=== PATIENT | female | born 1940 | race Caucasian/White ===

== ENCOUNTER 2020-04-05 13:36 | Emergency (ER) | payer MEDICARE, SELFPAY ==
--- NOTE | 2020-04-05 13:46 | ECG_ITS ---
Test Reason : CONFUSION Blood Pressure : / mmHG Vent. Rate : 075 BPM Atrial Rate : 075 BPM P-R Int : 126 ms QRS Dur : 078 ms QT Int : 392 ms P-R-T Axes : -12 -29 237 degrees QTc Int : 437 ms Normal sinus rhythm Possible Lateral infarct , age undetermined Abnormal ECG When compared with ECG of 25-MAR-2019 14:09, No significant changes seen Referred By: Toni Fleming Electronically Signed By:GREGORY RODRIGUEZ
--- NOTE | 2020-04-05 13:47 | ED.GENADULT ---
HPI - General Adult General Chief complaint: Altered Mental Status Stated complaint: ams Time Seen by Provider: 04/05/20 13:45 Source: EMS Mode of arrival: EMS Limitations: altered mental status History of Present Illness HPI narrative: Patient's history of dementia called EMS because she was sitting on the toilet seat for 1 hour with difficulty in getting up patient alert oriented 1-2 does not know why she is here with significant memory loss no history of fall no fever no chills no cough or shortness of breath Related Data Allergies Allergy/AdvReac Type Severity Reaction Status Date / Time No Known Allergies Allergy Unverified 11/30/19 16:54 [No Known Allergies*] Review of Systems Review of Systems: Yes Unobtainable due to mental status [facility] Social History Social History Alcohol intake: never Smoked in Last 30 Days: No Use of substances other than those prescribed or required for medical reasons: No Advance Directives: No Advance Directives Information Provided: No Physical Exam Vital Signs: Vital Signs: Last Vital Signs Temp 97.8 F 04/05/20 14:19 Pulse 68 04/05/20 14:19 Resp 17 04/05/20 14:19 BP 163/71 H 04/05/20 14:19 Pulse Ox 99 04/05/20 14:19 Body Mass Index 33.0 Const: General: no acute distress, well developed, alert and awake Nutritional Appearance: average body habitus Orientation/consciousness: oriented to person HENMT: Head: Yes normocephalic and Yes atraumatic Ears: hearing grossly normal bilaterally Face and sinus: Yes normal facial exam Eyes: General: appearance normal, both eyes and all related structures Neck: Neck: Yes normal visual inspection, Yes full ROM, Yes no meningeal signs, Yes supple and Yes no JVD Chest: Chest palpation & inspection: normal inspection of the chest and normal palpation of entire chest wall Resp: Effort & Inspection: normal respiratory effort Auscultation: clear to auscultation bilaterally, no crackles, no rales and no rhonchi Cardio: Jugular venous distension: no JVD Palpation: normal PMI Rate: regular rate Rhythm: regular rhythm Heart sounds: S1 normal heart sound present and S2 normal heart sound present GI: Inspection: Yes normal to inspection Palpation (GI): not soft and nontender Auscultation: normal bowel sounds : General: Yes no CVA tenderness Back/Spine/Pelvis: Back: no CVA tenderness Thoracic/Lumbar Spine: thoracic and lumbar spine normal to inspection Skin: General skin exam: no rashes or lesions noted Neuro: General: oriented to person, moves all extremities, Normal light touch and pain sensation, no meningeal signs, no focal motor deficits and CN's II-XI intact bilaterally Extrem: General: Yes normal to inspection, Yes full ROM, Yes no calf tenderness and No pedal edema Medical Decision Making MDM Narrative Medical decision making narrative: Patient with dementia with increased confusion and weakness will check the labs CBC is normal chemistry pending will check the urine for UTI. No signs of acute CVA. Patient signed to Dr. Marino for disposition and lab review Lab Data Lab results reviewed: Yes I reviewed the patient's lab results. Result diagrams: 04/05/20 14:51 04/05/20 14:51 Labs: Lab Results 04/05/20 04/05/20 Range/Units 14:51 14:51 WBC 6.3 (4.8-10.8) X10*3/uL RBC 4.09 L (4.20-5.50) X10*6/uL Hgb 12.6 (12.0-16.0) g/dl Hct 39.0 (37-47) % MCV 95.4 (80-98) fL MCH 30.8 (27.0-33.0) pg MCHC 32.3 (31.0-35.0) g/dl RDW 12.9 (11.0-16.0) % Plt Count 163 (160-400) X10*3/uL MPV 11.2 (9.4-12.3) fL Immature Gran % (Auto) 0.2 (0.0-0.4) % Neut % (Auto) 49.5 (45-73) % Lymph % (Auto) 37.9 (20-40) % [place] % (Auto) 10.0 (2-11) % Eos % (Auto) 1.9 (0-4) % Baso % (Auto) 0.5 (0-2) % Lymph # (Auto) 2.4 (1.2-4.9) X10*3/uL [place] # (Auto) 0.6 (0.1-1.2) X10*3/uL Eos # (Auto) 0.1 (0.0-0.4) X10*3/uL Baso # (Auto) 0.0 (0.0-0.2) X10*3/uL Abs Immat Gran (auto) 0.01 (0.00-0.03) X10*3/uL Absolute Neuts (auto) 3.1 (2.0-8.3) X10*3/uL Absolute Nucleated RBC 0.000 (0.0-0.012) X10*3/uL Nucleated RBC % (auto) 0.0 (0.0-0.2) /100WBC COVID-19 (ALISON) Negative (Negative) COVID-19 Clin Com See Note ECG Data Attestation: I personally reviewed and interpreted this ECG as follows: Interpretation: Normal sinus rhythm heart rate 75 beats per minute normal intervals normal axis no acute ST T wave changes impression no acute ischemia
[2020-04-05 14:07] VITALS: BP 132/78; BP 163/71; PULSE 66; PULSE 74; RESP 17; TEMP 36.6; O2SAT 97; O2SAT 98; BMI 33.0
[2020-04-05 14:19] VITALS: BP 163/71; PULSE 68; RESP 17; TEMP 36.6; O2SAT 99
[2020-04-05] MEDS: 0.9 % Sodium Chloride 1,000 ML 999 ML IVCONT (14:54)
[2020-04-05 15:12] LABS: MANUAL DIFF FLAG NO
[2020-04-05 15:18] LABS: Basophils Percent Auto 0.5 % (0-2); Eosinophils Absolute Auto 0.1 X10*3/uL (0.0-0.4); Eosinophils Percent Auto 1.9 % (0-4); Hemoglobin 12.6 g/dl (12.0-16.0); Imm Gran Abs Auto 0.01 X10*3/uL (0.00-0.03); Imm Gran Pct Auto 0.2 % (0.0-0.4); Lymphocytes Absolute Auto 2.4 X10*3/uL (1.2-4.9); Lymphocytes Percent Auto 37.9 % (20-40); Mean Corpuscular HGB Conc 32.3 g/dl (31.0-35.0); Mean Corpuscular Hemoglobin 30.8 pg (27.0-33.0); Mean Corpuscular Volume 95.4 fL (80-98); Mean Platelet Volume 11.2 fL (9.4-12.3); Monocytes Absolute Auto 0.6 X10*3/uL (0.1-1.2); Neutrophils Absolute Auto 3.1 X10*3/uL (2.0-8.3); Neutrophils Percent Auto 49.5 % (45-73); Platelet Count 163 X10*3/uL (160-400); Red Blood Count 4.09 X10*6/uL (4.20-5.50); Red Cell Distribution Width 12.9 % (11.0-16.0); White Blood Count 6.3 X10*3/uL (4.8-10.8)
[2020-04-05 15:23] LABS: COVID-19 Test Negative (Negative); IDNOW Serial# 9DD0AD1C
--- NOTE | 2020-04-05 16:32 | CT_ITS ---
EXAMINATION: CT HEAD WITHOUT CONTRAST CLINICAL INFORMATION: Altered mental status COMPARISON: None TECHNIQUE: Contiguous axial imaging was performed from the skull base to vertex without intravenous administration of contrast. This CT examination was performed using dose optimization techniques as appropriate, variously including the following: *Automated exposure control *Adjustment of mA and/or kV according to patient size (this includes techniques or standardized protocols for targeted exams where dose is matched to indication/reason for exam; i.e. extremities or head) *Use of iterative reconstruction technique DLP: 842 mGy-cm FINDINGS: There is no evidence of acute intracranial hemorrhage or territorial infarction. No abnormal mass effect or midline shift is seen. Fair to white matter differentiation is well preserved. No extra-axial fluid collections are identified. The ventricles are normal in size. There is atrophy here and scattered white matter ischemic change. The osseous structures and soft tissues are normal. The mastoid air cells and visualized portions of the paranasal sinuses are well aerated. CT/CT head/brain wo con IMPRESSION: No acute intracranial pathology.
[2020-04-05 16:58] LABS: Alanine Aminotransferase 17 U/L (0-31); Albumin Level 3.6 g/dL (3.5-5.0); Alkaline Phosphatase 57 U/L (39-117); Anion Gap 9 (12-20); Aspartate Amino Transferase 19 U/L (5-31); Bilirubin Direct 0.2 mg/dL (0.0-0.5); Bilirubin Total 0.5 mg/dL (0.0-1.0); Blood Urea Nitrogen 23 mg/dL (9-16); Calcium 8.3 mg/dL (8.4-10.2); Carbon Dioxide 27 mmol/L (22-29); Chloride 108 mmol/L (96-108); Creatinine Clr Calc Pharmacy 61.2; Estimated Glomerular Filt Rate > 60; Glucose Random 84 mg/dL (60-115); Sodium 140 mmol/L (135-145); Total Protein 6.2 g/dL (6.5-8.0)
[2020-04-05] MEDS: LORazepam 1 MG TABLET PO (19:58)
[2020-04-05 22:22] LABS: Appearance Urine CLEAR; Color Urine YELLOW; Glucose Urine UA NEG (NEG); Leukocyte Esterase Urine NEG (NEG); Nitrite Urine NEG (NEG); Specific Gravity - Urine 1.025 (1.005-1.025); Urine Blood TRACE (NEG); Urine Ketones NEG (NEG); Urine Protein NEG (NEG-TRACE)
[2020-04-05 22:28] LABS: Bacteria Urine TRACE /LPF; RBC Urine 0-2 /HPF (0); WBC Urine 0 /HPF (0-4)
[2020-04-06 01:13] VITALS: BP 156/85; PULSE 73; RESP 16; TEMP 37; O2SAT 99
[2020-04-06 02:51] VITALS: BP 177/78; PULSE 76; RESP 18; O2SAT 97
[2020-04-06 06:00] VITALS: BP 156/78; PULSE 81; RESP 18; TEMP 37.3; O2SAT 97
[2020-04-06 08:00] VITALS: RESP 18
[2020-04-06 10:00] VITALS: BP 155/77; PULSE 77; RESP 18; O2SAT 97
--- NOTE | 2020-04-06 11:13 | MHC.CM.ED ---
Received case management consult overnight. Patient came to ER due to AMS. Physical therapy eval is pending. Spoke with patient's , Tesfaye via telephone at [phone]. 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 Tesfaye has been attempting to get patient into [facility] unit in [place]. T/W spoke with Rose at [facility] via telephone. The patient would need to have an assessment completed by their nurse before she would be eligible to go to their facility. Before they complete the assessment, they need to know the patient is compliant with chloe care and medication administration. They are hoping patient can go to short term rehab and then transition to their facility in the first week of April. Tesfaye is aware and will wait until physical therapy evaluatates patient. Continue to monitor for d/c needs.
[2020-04-06 13:43] VITALS: BP 155/77; PULSE 77; O2SAT 97
--- NOTE | 2020-04-06 14:44 | MHC.CM.ED ---
Spoke with Arianne from physical therapy. Tesfaye is concerned about discharge plan. T/w attempted to reach him at home via telephone at [phone] and cell at [phone]. Requested return telephone call. Continue to monitor for d/c needs.
--- NOTE | 2020-04-06 14:57 | MHC.CM.PN ---
Physical therapy jordan. STR transitioning to LTC vs Home with services. Spoke with patient's Tesfaye. Tesfaye would prefer to take patient home and continue to attempt to get patient into [facility] unit. He will be at the ER at 4pm to bring the patient clothes and transport her home. Tesfaye is declining [facility]NA at this time. Ene EPSTEIN and Volodymyr GRIFFIN aware. Continue to monitor for d/c needs.
== END 2020-04-06 16:46 | disposition home or self-care (01) ==
PROVIDERS: Emergency Provider Internal Medicine; PCP Internal Medicine
DX: F03.90 Unspecified dementia, unspecified severity, without behavioral disturbance, psychotic disturbance, mood disturbance, and anxiety (principal); Z20.822 Contact with and (suspected) exposure to COVID-19
CPT/HCPCS: 36415; 70450; 80048; 80076; 81001; 85025; 87635; 93005; 96360; 97162; 99285

== ENCOUNTER 2020-04-06 19:54 | Emergency (ER) | payer MEDICARE, SELFPAY ==
[2020-04-06 19:59] VITALS: BP 149/78; PULSE 88; RESP 16; TEMP 36.7; O2SAT 95; BMI 28.8
--- NOTE | 2020-04-06 20:58 | ED.GENADULT ---
HPI - General Adult General Chief complaint: General Medical Stated complaint: DEMENTIA Time Seen by Provider: 04/06/20 20:58 Source: patient, EMS and old records reviewed Mode of arrival: EMS Limitations: altered mental status History of Present Illness HPI narrative: 79 yo female with dementia seen yesterday in ED with normal labs, negative COVID, CT scan negative - sent home for SNF placement from home after DC, family notes they cannot take care of her at this time Onset (ago): month(s) Severity: mild Relieving factors: none Exacerbating factors: none Associated symptoms: denies other symptoms Treatments prior to arrival: none Related Data Home Medications Medication Instructions Recorded Confirmed atenolol 25 mg PO DAILY 04/06/20 04/06/20 levothyroxine 100 mcg PO DAILY 04/06/20 04/06/20 Allergies Allergy/AdvReac Type Severity Reaction Status Date / Time No Known Allergies Allergy Verified 04/06/20 23:56 [No Known Allergies*] Review of Systems Review of Systems: ROS unable to be obtained due to dementia REPLACED BY [facility] Past Medical History Attestation statement: The following information was validated with the patient. Medical History Dementia Social History Social History Alcohol intake: never Smoking Status: Smoker, status unknown Use of substances other than those prescribed or required for medical reasons: No Advance Directives: No Advance Directives Information Provided: No Physical Exam Vital Signs: Vital Signs: Last Vital Signs Temp 98.0 F 04/06/20 19:59 Pulse 85 04/07/20 01:59 Resp 20 04/07/20 01:59 BP 157/82 H 04/07/20 01:59 Pulse Ox 96 04/07/20 01:59 Body Mass Index 28.8 Appearance: calm and cooperative at this time, sleeping, easily woken Eyes: Pupils equal, round and reactive to light. ENT: Pharynx normal. Neck: Normal inspection. Neck supple. CVS: Normal heart rate and rhythm. Pulses normal. Respiratory: No respiratory distress. Breath sounds normal. Abdomen: Soft and no grimace with palpation Skin: Skin warm and dry. Normal skin color. Normal skin turgor. Extremities: No lower extremity edema. No calf ttp Neuro: resting comfortably No motor deficit. No sensory deficit. Course Course Course Narrative: signed out to day provider pending CM input Medical Decision Making MDM Narrative Medical decision making narrative: 79 yo female coming from home with dementia - already worked up medically yesterday no new complaints other than family cannot care for her at home - will order CM consult and keep in ED until they determine appropriate placement Discharge Plan Discharge Clinical Impression: Dementia Qualifiers: Dementia type: unspecified type Dementia behavioral disturbance: without behavioral disturbance Qualified Code(s): F03.90 - Unspecified dementia without behavioral disturbance Prescriptions: No [facility] atenolol 25 mg Tablet 25 mg PO DAILY RF: 0 levothyroxine 100 mcg Capsule 100 mcg PO DAILY RF: 0
--- NOTE | 2020-04-06 21:17 | PC.NURSE ---
Patient was discharged from [facility] this afternoon. Per EMS they were called to patient's home and family stated that they could not take care of her anymore. Patient sent back for case management and jail placement.
[2020-04-07] VITALS (7 sets, daily range): BP systolic 132–157; BP diastolic 54–84; PULSE 63–85; RESP 16–20; TEMP 36.3–36.8; O2SAT 94–99
--- NOTE | 2020-04-07 | PC.NURSE ---
This appeals writer spoke with patient's who stated that he is unable to care for his at this point because she requires alot of assistance and it is only him. He would like her place in a residence and if by chance she rallies he is not opposed to having her back home. He was very upset that she urinated on the couch.
--- NOTE | 2020-04-07 06:31 | PC.NURSE ---
Patient slept the entire evening. Medication reconciliation completed. Patient is to be seen by case management this morning and also is to have PT evaluation for placement. Family is unable to care for patient at this time.
--- NOTE | 2020-04-07 07:36 | PC.NURSE ---
PT IS SLEEPING RESP EVEN AND UNLABORED.
[2020-04-07] MEDS: Levothyroxine Sodium 100 MCG TABLET PO (08:14)
[2020-04-07] MEDS: atenoloL 25 MG TABLET PO (08:14)
--- NOTE | 2020-04-07 10:01 | MHC.CM.ED ---
Patient was in ER yesterday. Patient's decided to take her home. However, he had to call EMS again because she was not able to ambulate and was inc of urine. Spoe with patient's , Tesfaye, via telephone at [phone]. Tesfaye is agreeable to referral being broadcasted. Referral broadcasted in [employer]. Continue to monitor for d/c needs.
--- NOTE | 2020-04-07 13:51 | MHC.CM.ED ---
Referrals brodcasted in [employer]. [facility], [facility] and [facility] can potentially offer a bed tomorrow. These options were discussed with patient's , Tesfaye. He is not interested in having patient go to [facility]. Tesfaye understands it is anticipated she will spend the night in the ER. Have not heard from [facility], [facility] or [facility]. Continue to monitor for d/c needs.
--- NOTE | 2020-04-07 15:37 | PC.NURSE ---
Patient moved into hospital bed for comfort. Pt incont of urine and stool prior to transfer- chloe care provided, linen changed, and pure wick applied. Pt is tolerating well. Pt ate 100% of lunch. Pending case management placement. Pt denies complaints or needs at this time.
[2020-04-07 20:22] LABS: COVID-19 Test Negative (Negative); IDNOW Serial# 9DD0AD1C
--- NOTE | 2020-04-07 21:10 | PC.NURSE ---
Pt ate 100% of dinner, denies complaints or needs at this time.
[2020-04-08] VITALS (8 sets, daily range): BP systolic 118–181; BP diastolic 52–81; PULSE 52–84; RESP 16–18; TEMP 36.4–36.6; O2SAT 94–97
[2020-04-08] MEDS: atenoloL 25 MG TABLET PO (09:46)
[2020-04-08] MEDS: Levothyroxine Sodium 100 MCG TABLET PO (09:47)
--- NOTE | 2020-04-08 09:50 | PC.NURSE ---
Pt changed for urine incontinence, pt aggressive with staff but complaint with much redirection needed. Accepted AM pills whole with water. Declines breakfast and back to sleep at this time.
--- NOTE | 2020-04-08 13:54 | PC.NURSE ---
Pt sleeping since this AM, awakes with verbal and at times tactile stimuli. Per prior RN pt did not sleep much last night. Declined lunch, will re attempt with dinner.
--- NOTE | 2020-04-08 17:23 | PC.NURSE ---
Pt cleaned for urine and stool incontinence, aggressive with care but able to redirect. Spoke again to Tesfaye and updated. Pt continues to sleep most of shift, per pt had same issue with sleeping throughout day and awake at night at home.
--- NOTE | 2020-04-08 18:18 | MHC.CM.ED ---
Spoke with , Tesfaye ([phone]). Reviewed plan of care and referrals placed. No bed yet. Waiting on second broadcast referrals. Tesfaye tells CM that he cannot care for his in this state. States she was much more independent a week ago. He feel she is not safe at home. Tesfaye tells CM that he had an appointment last wednesday, 04/05 to have pt evaluated at [facility] in [place] for a locked dementia bed. Tesfaye's expectation is that maybe STR will help his and if not, he expects she will need LTC, hopefully at [facility]. States he has funds until she can be eligible for medicaid. Will speak with Tesfaye again tomorrow when we hear back from referrals place. Tesfaye spoke with RN for update on pt condition and care today. Will follow for d/c needs
--- NOTE | 2020-04-08 19:13 | PC.NURSE ---
patient was fed by this pct ,patient ate 100% ,and drank 240 cc of milk
--- NOTE | 2020-04-08 21:18 | PC.NURSE ---
patient drank ensure without issue.
[2020-04-09] VITALS (7 sets, daily range): BP systolic 118–143; BP diastolic 63–75; PULSE 47–69; RESP 16–20; TEMP 36.9–38.1; O2SAT 93–96
--- NOTE | 2020-04-09 01:30 | PC.NURSE ---
Pt urine incontinent and stool incontinenent. full bed bath preformed. skin checked. barrier cream applied. linens changed. pt assessed by data support analyst with drinking water. monitoring at time.
--- NOTE | 2020-04-09 03:17 | XR_ITS ---
EXAMINATION: XR CHEST CLINICAL INFORMATION: Fever COMPARISON: 03/25/2019 TECHNIQUE: Frontal view of the chest was obtained. FINDINGS: Lung volumes are symmetric. No focal consolidation is seen. No evidence of pneumothorax, pleural effusion, or pulmonary edema. Cardiac silhouette appears borderline enlarged. Plate and screw fixation hardware noted along the right clavicle. XR/XR chest 1V IMPRESSION: No acute cardiopulmonary findings.
[2020-04-09 03:30] LABS: MANUAL DIFF FLAG NO
[2020-04-09 03:32] LABS: Basophils Percent Auto 0.2 % (0-2); Eosinophils Absolute Auto 0.2 X10*3/uL (0.0-0.4); Eosinophils Percent Auto 1.8 % (0-4); Hematocrit 42.2 % (37-47); Hemoglobin 13.8 g/dl (12.0-16.0); Imm Gran Abs Auto 0.03 X10*3/uL (0.00-0.03); Imm Gran Pct Auto 0.3 % (0.0-0.4); Lymphocytes Absolute Auto 2.2 X10*3/uL (1.2-4.9); Lymphocytes Percent Auto 20.2 % (20-40); Mean Corpuscular HGB Conc 32.7 g/dl (31.0-35.0); Mean Corpuscular Hemoglobin 30.5 pg (27.0-33.0); Mean Corpuscular Volume 93.2 fL (80-98); Monocytes Percent Auto 9.4 % (2-11); Neutrophils Absolute Auto 7.4 X10*3/uL (2.0-8.3); Neutrophils Percent Auto 68.1 % (45-73); Platelet Count 199 X10*3/uL (160-400); Red Blood Count 4.53 X10*6/uL (4.20-5.50); Red Cell Distribution Width 12.8 % (11.0-16.0); White Blood Count 10.9 X10*3/uL (4.8-10.8)
[2020-04-09 03:37] LABS: Glucose Urine UA NEG (NEG); Leukocyte Esterase Urine 2+ (NEG); Nitrite Urine POS (NEG); PH 5.5 (5.0-8.0); Specific Gravity - Urine >= 1.030 (1.005-1.025); UACC Culture Trigger YES; Urine Blood 3+ (NEG); Urine Ketones NEG (NEG); Urine Protein 3+ MG/DL (NEG-TRACE)
[2020-04-09 03:47] LABS: Appearance Urine TURBID; Bacteria Urine 2+ /LPF; Color Urine AMBER; RBC Urine 0-2 /HPF (0); Squamous Epithelial Cell Urine TRACE /LPF; WBC Clumps Urine NOTED; WBC Urine TNTC /HPF (0-4)
[2020-04-09 03:49] LABS: Lactic Acid 1.2 mmol/L (0.5-2.0)
--- NOTE | 2020-04-09 03:51 | PC.NURSE ---
This travel writer and ERT went in to patient to change bed linens cause she had soiled herself. Patient felt warm to touch and skin was hot to touch. informed and epstein catheter order. Patient had foul smelling urine and it was indicative of urinary tract infection. Urine sample sent after epstein catheter places. Urine was frothy pink. Result of urine came back nitrate positive and patient is being treated for urinary tract infection. Patient was lined and lab'd with blood cultures being drawn. IV fluid hung. Iv wrapped with guaze so that patient didn't pull the IV out. Patient rectal temperature at this time was 100.6. aware.
[2020-04-09 03:53] LABS: Alanine Aminotransferase 22 U/L (0-31); Albumin Level 3.7 g/dL (3.5-5.0); Alkaline Phosphatase 60 U/L (39-117); Anion Gap 15 (12-20); Aspartate Amino Transferase 29 U/L (5-31); Bilirubin Direct 0.3 mg/dL (0.0-0.5); Bilirubin Total 0.7 mg/dL (0.0-1.0); Blood Urea Nitrogen 25 mg/dL (9-16); Carbon Dioxide 26 mmol/L (22-29); Chloride 104 mmol/L (96-108); Creatinine Clr Calc Pharmacy 57.5; Estimated Glomerular Filt Rate > 60; Glucose Random 114 mg/dL (60-115); Lipase 21 U/L (8-78); Potassium 3.5 mmol/l (3.3-5.1); Sodium 141 mmol/L (135-145); Total Protein 6.5 g/dL (6.5-8.0)
[2020-04-09 03:56] LABS: COVID-19 Test Negative (Negative)
[2020-04-09] MEDS: 0.9 % Sodium Chloride 1,000 ML 999 ML IVCONT (03:56)
[2020-04-09] MEDS: cefTRIAXone sodium 1 GM in 0.9 % Sodium Chloride 50 ML IV (04:58)
--- NOTE | 2020-04-09 07:28 | PC.NURSE ---
pt awake and alert to place but otherwise confused abx completed, pt repositioned and given breakfast. epstein cath draining well. pt in no distress.
[2020-04-09] MEDS: Levothyroxine Sodium 100 MCG TABLET PO (08:12)
[2020-04-09] MEDS: atenoloL 25 MG TABLET PO (08:12)
--- NOTE | 2020-04-09 09:19 | PC.NURSE ---
pt continues resting comfortably in semifowlers position. pt tolerated approx 30% breakfast in total. awaiting case mgt .
--- NOTE | 2020-04-09 09:56 | MHC.CM.ED ---
Patient remains in ER. Still waiting to hear about bed offers. T/w spoke with Ute at [facility]. They have 2 levels of memory care units that patient may be appropriate for. Ute will reach out to Tesfaye. Continue to monitor for d/c needs.
--- NOTE | 2020-04-09 11:50 | MHC.CM.ED ---
's seat in [place] is able to offer a bed today. Spoke with patient's Tesfaye via telephone. Tesfaye agreeable to transfer and will bring clothes to the ER for the patient. [facility] booked for 230pm. [facility] with chart. Patient, Dr Montgomery and Krish RN aware. Continue to monitor for d/c needs.
--- NOTE | 2020-04-09 13:52 | MHC.CM.ED ---
Tesfaye arrived to ER with belongings to patient. 2 bags brought to patient's room by T/Alfredo
== END 2020-04-09 14:47 | disposition home or self-care (01) ==
PROVIDERS: Emergency Medicine; Emergency Provider Emergency Medicine; PCP Internal Medicine
DX: F03.90 Unspecified dementia, unspecified severity, without behavioral disturbance, psychotic disturbance, mood disturbance, and anxiety (principal); Z20.822 Contact with and (suspected) exposure to COVID-19; Z79.899 Other long term (current) drug therapy
CPT/HCPCS: 36415; 71045; 80048; 80076; 81001; 81003; 83605; 83690; 85025; 87040; 87086; 87088; 87186; 87635; 96361; 96365; 99285; J0696

== ENCOUNTER 2021-07-05 13:14 | Inpatient (IN) | payer MEDICARE, MEDICAID, SELFPAY ==
[2021-07-05] VITALS (9 sets, daily range): BP systolic 108–134; BP diastolic 42–76; PULSE 88–99; RESP 14–32; O2SAT 84–96; BMI 25.7
--- NOTE | ~2021-07-05 | CT_ITS ---
EXAMINATION: CT ABDOMEN AND PELVIS WITH CONTRAST CLINICAL INFORMATION: Abdominal pain. Abdominal distention. COMPARISON: None TECHNIQUE: Multidetector volumetric images were obtained from the superior aspect of the liver through the pubic symphysis following administration 85 mL of Omnipaque 350 intravenous contrast. Sagittal and coronal reformatted images were obtained on the technologist's workstation. Oral contrast: Yes This CT examination was performed using dose optimization techniques as appropriate, variously including the following: *Automated exposure control *Adjustment of mA and/or kV according to patient size (this includes techniques or standardized protocols for targeted exams where dose is matched to indication/reason for exam; i.e. extremities or head) *Use of iterative reconstruction technique DLP: 812 mGy-cm FINDINGS: LUNG BASES: There is bronchial wall thickening seen at the lung bases. There may be a small esophageal hernia. The distal thoracic esophagus is slightly distended and fluid-filled. LIVER, GALLBLADDER, AND BILIARY TREE: The liver is normal in size, shape, and attenuation. No focal hepatic lesion or biliary ductal dilatation is present. The gallbladder is unremarkable with no evidence of radiopaque gallstones, gallbladder wall thickening, or obvious pericholecystic inflammatory changes. PANCREAS: Unremarkable. SPLEEN: Unremarkable. ADRENAL GLANDS: Unremarkable. KIDNEYS AND URETERS: There is a 1 cm cyst in the left kidney. The kidneys are otherwise unremarkable. BLADDER: Not optimally distended. GASTROINTESTINAL TRACT: Colon is very dilated and filled with stool. There is beaked appearance of the distal sigmoid colon and swirling of the mesentery suggestive of sigmoid volvulus. There is focal wall thickening of the sigmoid colon, stranding of the fat and surrounding mesentery and secondary vascular compromise cannot be excluded. The rectum does not appear dilated. The small bowel is normal. The appendix is not seen. There may be a small esophageal hernia. The stomach is otherwise normal. No free air is seen. There is a small amount of ascites in the pelvis. ABDOMINAL WALL: No significant hernia is appreciated. LYMPH NODES: Normal. VASCULAR: There is evidence of atherosclerotic disease. No aneurysm is seen. PELVIC VISCERA: Unremarkable. OSSEOUS STRUCTURES: There are degenerative changes of the spine and mild scoliosis. CT/CT abdomen pelvis w con IMPRESSION: Sigmoid volvulus and secondary large bowel obstruction. There is focal wall thickening of the sigmoid colon, stranding of the surrounding fat and stranding of the small bowel mesentery and secondary vascular compromise cannot be excluded. Small amount of ascites in the pelvis. No free air. Small esophageal hernia. Atherosclerotic disease. Small left renal cyst. Fleischner guidelines were followed. Findings were communicated to Cami Maldonado by telephone on 07/05/2021 at 3:32 PM.
--- NOTE | ~2021-07-05 | XR_ITS ---
EXAMINATION: XR CHEST CLINICAL INFORMATION: Possible aspiration COMPARISON: Previous chest x-ray most recent March 2020 TECHNIQUE: 2 views of the chest were obtained. Lateral view is limited due to patient positioning. FINDINGS: The cardiac and mediastinal contours are stable. There is a 5 x 10 mm density at the left lung base. This may be related to the left fourth rib costochondral cartilage. The lungs are otherwise clear. No evidence of a pneumonia is seen. There is no pleural effusion or pneumothorax. There is a plate and screws in the right clavicle. There are dilated loops of bowel below the diaphragm. XR/XR chest 2V IMPRESSION: No evidence of pneumonia. 5 x 10 mm sclerotic density at the left lung base question related to left fourth rib calcified costochondral cartilage. Dilated bowel below the diaphragm.
--- NOTE | ~2021-07-05 | CT_ITS ---
EXAMINATION: CT CHEST WITHOUT CONTRAST CLINICAL INFORMATION: Cough. Low oxygen saturation. COMPARISON: Previous chest x-ray from earlier the same day TECHNIQUE: Multidetector volumetric CT imaging of the chest was done. Axial MIP volume rendering provided. Sagittal and coronal reformatted images were obtained. This CT examination was performed using dose optimization techniques as appropriate, variously including the following: *Automated exposure control *Adjustment of mA and/or kV according to patient size (this includes techniques or standardized protocols for targeted exams where dose is matched to indication/reason for exam; i.e. extremities or head) *Use of iterative reconstruction technique DLP: 291 mGy-cm FINDINGS: Exam is limited due to artifact from respiratory motion. LUNGS: There is bilateral lower lobe bronchial wall thickening seen dependently in the bilateral costophrenic angles. There may be mild bilateral lower lobe bronchopneumonia. Evaluation of the lung bases is limited due to respiratory motion artifact. The lungs are otherwise clear. MEDIASTINUM: The esophagus is dilated and fluid-filled. There may be a small esophageal hernia. The heart is upper normal in size. The thoracic aorta is normal in caliber. There is coronary artery and aortic valve calcification. There is no pericardial effusion. PLEURA: There is no pleural effusion. There is a calcification posterior to the left fourth rib likely accounting for chest x-ray finding. This may represent focal pleural calcification. AXILLA: No lymphadenopathy. UPPER ABDOMEN: Dilated large bowel. See abdominal and pelvic CT report from the same day. OSSEOUS STRUCTURES: There is a plate and screws in the right scapula. There are mild degenerative changes of the spine. CT/CT chest wo con IMPRESSION: Limited exam due to artifact from respiratory motion. Bronchial wall thickening in the bilateral dependent lower lobes and possible small bilateral bronchopneumonia. Fleischner guidelines were followed.
--- NOTE | 2021-07-05 13:38 | ECG_ITS ---
Test Reason : abd pain/vomiting Blood Pressure : / mmHG Vent. Rate : 094 BPM Atrial Rate : 094 BPM P-R Int : 112 ms QRS Dur : 086 ms QT Int : 366 ms P-R-T Axes : 034 -14 079 degrees QTc Int : 457 ms Sinus rhythm with Premature atrial complexes Left ventricular hypertrophy with repolarization abnormality ( R in aVL , Jn product ) Abnormal ECG When compared with ECG of 05-APR-2020 15:20, Premature atrial complexes are now Present Borderline criteria for Lateral infarct are no longer Present ST now depressed in Lateral leads Referred By: Generic ED Physician Electronically Signed By:OLENA GRIMM MD
--- NOTE | 2021-07-05 13:39 | ED_ITS ---
HPI - General Adult General Chief complaint: Abdominal Pain Stated complaint: abd pain Time Seen by Provider: 07/05/21 13:39 Source: patient and EMS Mode of arrival: EMS Limitations: altered mental status (per baseline) History of Present Illness HPI narrative: Patient is an 80 year old female presenting to the emergency department today with abdominal pain and vomiting. EMS states that the patient lives in a SNF and was brought in today for abdominal pain and vomiting. EMS states that the patient is altered at baseline with a history of alzhemiers and dementia. EMS states that the patient is a DNR/DNI and has no other medical problems. Patient is unable to answer any questions. Patient's is the primary decision maker and at the time of patient's arrival, he has been notified that she was transported. Onset (ago): hour(s) Location: abdomen Severity: severe Pain Consistency: constant Relieving factors: none Exacerbating factors: none Treatments prior to arrival: none Related Data Home Medications Medication Instructions Recorded Confirmed levothyroxine 100 mcg capsule 100 mcg PO DAILY 04/06/20 07/05/21 acetaminophen 325 mg tablet 650 mg PO Q4H PRN 07/05/21 07/05/21 bisacodyl 10 mg rectal suppository 10 mg OH DAILY PRN 07/05/21 07/05/21 chlorhexidine gluconate 0.12 % 15 ml BUCCAL BID 07/05/21 07/05/21 mouthwash lorazepam 2 mg/mL oral concentrate 0.5 mg PO BID 07/05/21 07/05/21 (Lorazepam Intensol) nystatin 100,000 unit/gram topical 1 appl TOPICAL BID 07/05/21 07/05/21 powder potassium chloride 20 mEq 1 tab PO DAILY 07/05/21 07/05/21 tablet,extended release (K-Tab) sodium phosphates 19 gram-7 118 ml OH DAILY PRN 07/05/21 07/05/21 gram/118 mL enema (Fleet Enema) Allergies Allergy/AdvReac Type Severity Reaction Status Date / Time No Known Allergies Allergy Verified 04/06/20 23:56 [No Known Allergies*] Review of Systems Review of Systems: Yes Unobtainable due to mental status (patient is altered at baseline) Constitutional: Constitutional: Denies fever(s) Eyes: Eyes: Denies eye discharge and Denies loss of vision ENT: Denies dizziness, Reports dry mouth, Denies lip swelling, Denies epistaxis and Denies neck mass Cardiovascular: Cardiovascular: Denies cool extremities, Denies edema, Denies irregular heart rhythm, Denies Loss of Consciousness and Denies dyspnea Respiratory: Respiratory: Denies dyspnea Gastrointestinal: Gastrointestinal: Reports abdominal pain, Reports vomiting and Reports hematemesis Genitourinary: Genitourinary: Denies hematuria, Denies urinary frequency, Denies dysuria, Denies urinary incontinence, Denies urinary hesitancy and Denies urinary urgency Musculoskeletal: Musculoskeletal: Denies deformity, Denies numbness and Denies tingling Integumentary/Breasts: Skin/Breast: Denies swelling Neurologic: Reports confusion, Denies dizziness, Denies loss of vision, Denies numbness and Denies tingling Comments: patient is altered at baseline Psychiatric: Psychiatric: Reports no additional psychiatric complaints and Reports confusion Endocrine: Endocrine: Reports no additional endocrine complaints Hematologic/Lymphatic: Hematologic/Lymphatic: Reports no additional hematologic/lymphatic complaints Allergic/Immunologic: Allergic/Immunologic: Denies lip swelling PMFSH Past Medical History Attestation statement: The following information was validated with the patient. (validated via SNF paperwork) Source: old records reviewed, obtained from family and nursing notes reviewed Medical History Dementia Social History Social History (Updated 07/05/21 @ 16:41 by Leo Giordano MD) Unable to assess alcohol history related to: Unable to respond Alcohol intake: never Patient Tobacco Use Status: Tobacco use Unknown Use of substances other than those prescribed or required for medical reasons: Unknown Advance Directives: Yes Advance Directives on File: Yes Advance Directives Date on File: 04/06/20 Physical Exam ED Vital Signs: Vital Signs - 24 hr 07/05/21 13:34 07/05/21 16:16 07/05/21 16:42 Pulse Rate 93 90 88 Respiratory Rate 32 H 29 H 17 Blood Pressure 109/76 134/75 122/62 Pulse Oximetry 84 L 93 93 07/05/21 18:02 07/05/21 18:06 Pulse Rate 99 99 Respiratory Rate 18 18 Blood Pressure 118/63 118/63 Pulse Oximetry 94 BMI result Body Mass Index 25.7 Const General: cooperative, no acute distress, alert, awake and confusion Nutritional Appearance: well nourished Orientation/consciousness: oriented to person, No oriented to place, No oriented to time, No patient oriented x3 and confusion Limitations: no limitations HENMT Head: Yes normal to inspection and Yes atraumatic Ears: hearing grossly normal bilaterally and external ears normal General nose exam: Normal external nose present, no nasal discharge noted and no epistaxis Face and sinus: Yes normal facial exam, No abrasion and No laceration Mouth: Normal oral and palatal mucosa present, no drooling and no muffled voice Eyes General: appearance normal, both eyes and all related structures Periorbital: periorbital findings normal Eyelids: Yes eyelids normal Conjunctivae: conjunctivae normal Pupils: Equal, round and reactive pupils present EOM: EOMs intact bilaterally Neck Neck: Yes normal visual inspection, Yes full ROM and Yes no lymphadenopathy Chest Chest palpation & inspection: normal inspection of the chest Resp Effort & Inspection: normal respiratory effort Auscultation: rales bilateral and diffuse Cardio Rate: regular rate Rhythm: regular rhythm GI Inspection: Yes distended Palpation (GI): Firmness to palpation present (GI) other (diffuse) and Rigid due to palpation Auscultation: Absent bowel sounds Neuro General: oriented to person, No oriented to place, No oriented to time, No patient oriented x3, moves all extremities, confusion and Unable to assess gait Cranial nerves: Yes Equal, round and reactive pupils present Cognition (Neuro): abnormal cognition (confused per her baseline) Gait exam (Neuro): Unable to assess gait Extrem General: Yes normal to inspection, Yes full ROM and Yes capillary refill normal Psych Appearance: grossly normal Mental Status: mental status grossly normal Affect: normal affect Attitude: cooperative Thought process: Normal thought process present Thought content: Normal thought content present Insight: Good insight present (Psych) Course Reevaluation(s) Reevaluation #1: Spoke with Dr. Mancini who spoke with the patient's . She states that comfort care has been decided by the and that the patient should be admitted to the hospitalist/medicine service for comfort care. Time: 16:08 Medical Decision Making MDM Narrative Medical decision making narrative: Patient is an 80 year old female presenting to the emergency department today with abdominal pain and vomiting. Patient's physical exam showed a significantly distended and rigid abdomen with absent bowel sounds. Patient had an episode of coffee ground type emesis while in the department. Patient's blood work showed a markedly elevated WBC count at 27.4 and a lactic acidosis of 3.9. Additionally, the patient's potassium was low at 3.1. Patient's EKG was unremarkable. Patient's chest x-ray showed dilated bowel below the diaphragm. Patient's abdominal CT showed sigmoid volvulus and secondary large bowel obstruction as well as stranding of the surrounding fat of the small bowel mesentery. Secondary vascular compromise cannot be excluded. Patient's chest CT showed bronchial wall thickening in the bilateral dependent lower lobes that could be possible small bilateral bronchopneumonia. I explained my physical exam findings as well as all test results to the patient's . I answered all questions asked by the patient's . I consulted with Dr. Mancini of general surgery and with Dr. Giordano of GI. After extensive conversation with myself and the surgeon, Dr. Mancini, the patient's decided on the patient being comfort care only. Patient received IV antibiotics, IV fluids, IV potassium, and IV Morphine while in the department. Patient had an NG tube placed as well to assist her in comfort. Upon Dr. Mancini's recommendation, the patient is to be admitted under medicine/the hospitalist service for comfort care. I spoke to Dr. Reyes who agreed to admission. Differential Diagnosis Differential Diagnosis: small bowel obstruction, large bowel obstruction, pneumonia Medical Records Medical records reviewed: Yes I reviewed the patient's medical records. Lab Data Lab results reviewed: Yes I reviewed the patient's lab results. Result diagrams: 07/05/21 13:42 07/05/21 13:41 Labs: Lab Results 07/05/21 07/05/21 07/05/21 Range/Units 13:41 13:42 13:42 WBC 27.4 H (4.8-10.8) X10*3/uL RBC 4.70 (4.20-5.50) X10*6/uL Hgb 14.1 (12.0-16.0) g/dl Hct 44.2 (37.0-47.0) % MCV 94.0 (80.0-98.0) fL MCH 30.0 (27.0-33.0) pg MCHC 31.9 (31.0-35.0) g/dl RDW 14.3 (11.0-16.0) % Plt Count 242 (160-400) X10*3/uL MPV 12.0 (9.4-12.3) fL Immature Gran % (Auto) 1.0 H (0.0-0.4) % Neut % (Auto) 90.7 H (45-73) % Lymph % (Auto) 3.3 L (20-40) % [place] % (Auto) 4.9 (2-11) % Eos % (Auto) 0.0 (0-4) % Baso % (Auto) 0.1 (0-2) % Lymph # (Auto) 0.9 L (1.2-4.9) X10*3/uL [place] # (Auto) 1.4 H (0.1-1.2) X10*3/uL Eos # (Auto) 0.0 (0.0-0.4) X10*3/uL Baso # (Auto) 0.0 (0.0-0.2) X10*3/uL Abs Immat Gran (auto) 0.27 H (0.00-0.03) X10*3/uL Absolute Neuts (auto) 24.9 H (2.0-8.3) x10*3/uL Absolute Nucleated RBC 0.000 (0.0-0.012) X10*3/uL Nucleated RBC % (auto) 0.0 (0.0-0.2) /100WBC Smear Tech's Comments VERIFIED PT 14.2 H (9.9-13.0) SEC INR 1.2 H (0.9-1.1) APTT 29.5 (24.1-38.0) SEC Sodium 151 H (135-145) mmol/L Potassium 3.1 L (3.3-5.1) mmol/L Chloride 110 H (96-108) mmol/L Carbon Dioxide 28 (22-29) mmol/L Anion Gap 16 (12-20) BUN 30 H (9-16) mg/dL Creatinine 1.16 (0.5-1.4) mg/dL Estim Creat Clear Calc 39.0 Estimated GFR 45 Random Glucose 150 H (60-115) mg/dL Lactic Acid (0.5-2.0) mmol/L Calcium 10.0 D (8.4-10.2) mg/dL Total Bilirubin 1.6 H (0.0-1.0) mg/dL Direct Bilirubin 0.6 H (0.0-0.5) mg/dL AST 21 (5-31) U/L ALT 22 (0-31) U/L Alkaline Phosphatase 63 (39-117) U/L Troponin I High Sens (<3.5-17.0) ng/L Total Protein 7.5 (6.5-8.0) g/dL Albumin 3.9 (3.5-5.0) g/dL Lipase 5 L (8-78) U/L COVID-19 ([facility]) (Negative) COVID-19 Clin Com Blood Type Antibody Screen 07/05/21 07/05/21 07/05/21 Range/Units 13:42 14:11 14:11 WBC (4.8-10.8) X10*3/uL RBC (4.20-5.50) X10*6/uL Hgb (12.0-16.0) g/dl Hct (37.0-47.0) % MCV (80.0-98.0) fL MCH (27.0-33.0) pg MCHC (31.0-35.0) g/dl RDW (11.0-16.0) % Plt Count (160-400) X10*3/uL MPV (9.4-12.3) fL Immature Gran % (Auto) (0.0-0.4) % Neut % (Auto) (45-73) % Lymph % (Auto) (20-40) % [place] % (Auto) (2-11) % Eos % (Auto) (0-4) % Baso % (Auto) (0-2) % Lymph # (Auto) (1.2-4.9) X10*3/uL [place] # (Auto) (0.1-1.2) X10*3/uL Eos # (Auto) (0.0-0.4) X10*3/uL Baso # (Auto) (0.0-0.2) X10*3/uL Abs Immat Gran (auto) (0.00-0.03) X10*3/uL Absolute Neuts (auto) (2.0-8.3) x10*3/uL Absolute Nucleated RBC (0.0-0.012) X10*3/uL Nucleated RBC % (auto) (0.0-0.2) /100WBC Smear Tech's Comments PT (9.9-13.0) SEC INR (0.9-1.1) APTT (24.1-38.0) SEC Sodium (135-145) mmol/L Potassium (3.3-5.1) mmol/L Chloride (96-108) mmol/L Carbon Dioxide (22-29) mmol/L Anion Gap (12-20) BUN (9-16) mg/dL Creatinine (0.5-1.4) mg/dL Estim Creat Clear Calc Estimated GFR Random Glucose (60-115) mg/dL Lactic Acid 3.9 H* (0.5-2.0) mmol/L Calcium (8.4-10.2) mg/dL Total Bilirubin (0.0-1.0) mg/dL Direct Bilirubin (0.0-0.5) mg/dL AST (5-31) U/L ALT (0-31) U/L Alkaline Phosphatase (39-117) U/L Troponin I High Sens 12.3 (<3.5-17.0) ng/L Total Protein (6.5-8.0) g/dL Albumin (3.5-5.0) g/dL Lipase (8-78) U/L COVID-19 ([facility]) (Negative) COVID-19 Clin Com Blood Type A Positive Antibody Screen NEGATIVE 07/05/21 Range/Units 15:57 WBC (4.8-10.8) X10*3/uL RBC (4.20-5.50) X10*6/uL Hgb (12.0-16.0) g/dl Hct (37.0-47.0) % MCV (80.0-98.0) fL MCH (27.0-33.0) pg MCHC (31.0-35.0) g/dl RDW (11.0-16.0) % Plt Count (160-400) X10*3/uL MPV (9.4-12.3) fL Immature Gran % (Auto) (0.0-0.4) % Neut % (Auto) (45-73) % Lymph % (Auto) (20-40) % [place] % (Auto) (2-11) % Eos % (Auto) (0-4) % Baso % (Auto) (0-2) % Lymph # (Auto) (1.2-4.9) X10*3/uL [place] # (Auto) (0.1-1.2) X10*3/uL Eos # (Auto) (0.0-0.4) X10*3/uL Baso # (Auto) (0.0-0.2) X10*3/uL Abs Immat Gran (auto) (0.00-0.03) X10*3/uL Absolute Neuts (auto) (2.0-8.3) x10*3/uL Absolute Nucleated RBC (0.0-0.012) X10*3/uL Nucleated RBC % (auto) (0.0-0.2) /100WBC Smear Tech's Comments PT (9.9-13.0) SEC INR (0.9-1.1) APTT (24.1-38.0) SEC Sodium (135-145) mmol/L Potassium (3.3-5.1) mmol/L Chloride (96-108) mmol/L Carbon Dioxide (22-29) mmol/L Anion Gap (12-20) BUN (9-16) mg/dL Creatinine (0.5-1.4) mg/dL Estim Creat Clear Calc Estimated GFR Random Glucose (60-115) mg/dL Lactic Acid (0.5-2.0) mmol/L Calcium (8.4-10.2) mg/dL Total Bilirubin (0.0-1.0) mg/dL Direct Bilirubin (0.0-0.5) mg/dL AST (5-31) U/L ALT (0-31) U/L Alkaline Phosphatase (39-117) U/L Troponin I High Sens (<3.5-17.0) ng/L Total Protein (6.5-8.0) g/dL Albumin (3.5-5.0) g/dL Lipase (8-78) U/L COVID-19 ([facility]) Negative (Negative) COVID-19 Clin Com See Note Blood Type Antibody Screen Imaging Data Chest x-ray: Attestation: I personally reviewed and interpreted this imaging study as follows: My impression: Dilated bowel below diaphragm Radiologist's impression: EXAMINATION: XR CHEST CLINICAL INFORMATION: Possible aspiration COMPARISON: Previous chest x-ray most recent March 2020 TECHNIQUE: 2 views of the chest were obtained. Lateral view is limited due to patient positioning. FINDINGS: The cardiac and mediastinal contours are stable. There is a 5 x 10 mm density at the left lung base. This may be related to the left fourth rib costochondral cartilage. The lungs are otherwise clear. No evidence of a pneumonia is seen. There is no pleural effusion or pneumothorax. There is a plate and screws in the right clavicle. There are dilated loops of bowel below the diaphragm. XR/XR chest 2V IMPRESSION: No evidence of pneumonia. 5 x 10 mm sclerotic density at the left lung base question related to left fourth rib calcified costochondral cartilage. Dilated bowel below the diaphragm. Dictated By: Su Correa MD Signed By: Electronically signed by Su Correa MD 07/05/[address] scan - chest: Attestation: I personally reviewed and interpreted this imaging study as follows: Radiologist's impression: EXAMINATION: CT CHEST WITHOUT CONTRAST CLINICAL INFORMATION: Cough. Low oxygen saturation.? COMPARISON: Previous chest x-ray from earlier the same day? TECHNIQUE: Multidetector volumetric CT imaging of the chest was done. Axial MIP volume rendering provided. Sagittal and coronal reformatted images were obtained.? This CT examination was performed using dose optimization techniques as appropriate, variously including the following: *Automated exposure control *Adjustment of mA and/or kV according to patient size (this includes techniques or standardized protocols for targeted exams where dose is matched to indication/reason for exam; i.e. extremities or head) *Use of iterative reconstruction technique DLP: 291 mGy-cm FINDINGS: Exam is limited due to artifact from respiratory motion. LUNGS: There is bilateral lower lobe bronchial wall thickening seen dependently in the bilateral costophrenic angles. There may be mild bilateral lower lobe bronchopneumonia. Evaluation of the lung bases is limited due to respiratory motion artifact. The lungs are otherwise clear. MEDIASTINUM: The esophagus is dilated and fluid-filled. There may be a small esophageal hernia. The heart is upper normal in size. The thoracic aorta is normal in caliber. There is coronary artery and aortic valve calcification. There is no pericardial effusion. PLEURA: There is no pleural effusion. There is a calcification posterior to the left fourth rib likely accounting for chest x-ray finding. This may represent focal pleural calcification. AXILLA: No lymphadenopathy.? UPPER ABDOMEN: Dilated large bowel. See abdominal and pelvic CT report from the same day. OSSEOUS STRUCTURES: There is a plate and screws in the right scapula. There are mild degenerative changes of the spine. CT/CT chest wo con IMPRESSION: Limited exam due to artifact from respiratory motion. Bronchial wall thickening in the bilateral dependent lower lobes and possible small bilateral bronchopneumonia. ? Fleischner guidelines were followed. Dictated By: Su Correa MD Signed By: Electronically signed by Su Correa MD 07/05/[address] scan - abdomen: Attestation: I personally reviewed and interpreted this imaging study as follows: Radiologist's impression: EXAMINATION: CT ABDOMEN AND PELVIS WITH CONTRAST? CLINICAL INFORMATION: Abdominal pain. Abdominal distention.? COMPARISON: None? TECHNIQUE: Multidetector volumetric images were obtained from the superior aspect of the liver through the pubic symphysis following administration 85 mL of Omnipaque 350 intravenous contrast. Sagittal and coronal reformatted images were obtained on the technologist's workstation.? Oral contrast: Yes This CT examination was performed using dose optimization techniques as appropriate, variously including the following: *Automated exposure control *Adjustment of mA and/or kV according to patient size (this includes techniques or standardized protocols for targeted exams where dose is matched to indication/reason for exam; i.e. extremities or head) *Use of iterative reconstruction technique DLP: 812 mGy-cm FINDINGS: LUNG BASES: There is bronchial wall thickening seen at the lung bases. There may be a small esophageal hernia. The distal thoracic esophagus is slightly distended and fluid-filled. LIVER, GALLBLADDER, AND BILIARY TREE: The liver is normal in size, shape, and attenuation. No focal hepatic lesion or biliary ductal dilatation is present. The gallbladder is unremarkable with no evidence of radiopaque gallstones, gallbladder wall thickening, or obvious pericholecystic inflammatory changes.? PANCREAS: Unremarkable.? SPLEEN: Unremarkable.? ADRENAL GLANDS: Unremarkable.? KIDNEYS AND URETERS: There is a 1 cm cyst in the left kidney. The kidneys are otherwise unremarkable. BLADDER: Not optimally distended.? GASTROINTESTINAL TRACT: Colon is very dilated and filled with stool. There is beaked appearance of the distal sigmoid colon and swirling of the mesentery suggestive of sigmoid volvulus. There is focal wall thickening of the sigmoid colon, stranding of the fat and surrounding mesentery and secondary vascular compromise cannot be excluded. The rectum does not appear dilated. The small bowel is normal. The appendix is not seen. There may be a small esophageal hernia. The stomach is otherwise normal. No free air is seen. There is a small amount of ascites in the pelvis. ABDOMINAL WALL: No significant hernia is appreciated.? LYMPH NODES: Normal. VASCULAR: There is evidence of atherosclerotic disease. No aneurysm is seen. PELVIC VISCERA: Unremarkable.? OSSEOUS STRUCTURES: There are degenerative changes of the spine and mild scoliosis. CT/CT abdomen pelvis w con IMPRESSION: Sigmoid volvulus and secondary large bowel obstruction. There is focal wall thickening of the sigmoid colon, stranding of the surrounding fat and stranding of the small bowel mesentery and secondary vascular compromise cannot be excluded. Small amount of ascites in the pelvis. No free air. Small esophageal hernia. Atherosclerotic disease. Small left renal cyst. ? Fleischner guidelines were followed. ? Findings were communicated to Cami Maldonado by telephone on 07/05/2021 at 3:32 PM. Dictated By: Su Correa MD Signed By: Electronically signed by Su Correa MD 07/05/21 8743 ECG Data Attestation: I personally reviewed and interpreted this ECG as follows: Prior ECG tracings: available for review Interpretation: Vent. Rate: 094 BPM ? ? Atrial Rate: 094 BPM P-R Int: 112 ms? QRS Dur: 086 ms QT Int: 366 ms ? ? ? P-R-T Axes: 034 -14 079 degrees QTc Int: 457 ms ? Sinus rhythm with Premature atrial complexes Left ventricular hypertrophy with repolarization abnormality ( R in aVL , [employer]ford product ) Abnormal ECG When compared with ECG of 05-APR-2020 15:20, Premature atrial complexes are now Present Borderline criteria for Lateral infarct are no longer Present ST now depressed in Lateral leads DD/ [id number] Critical Care Time Critical Care Time Critical Care Time: Yes Total Critical Care Time: 45 Attestation: I spent 45 minutes of Critical Care Time with this patient. This does not include time spent on separately reported billable procedures. Discharge Plan Discharge Clinical Impression: Sigmoid volvulus, Large bowel obstruction, Ischemia, bowel, Leukocytosis, Pneumonia Patient Disposition: Admitted As Inpatient Print Language: Trinidadian
[2021-07-05 13:51] LABS: Basophils Percent Auto 0.1 % (0-2); Hematocrit 44.2 % (37.0-47.0); Hemoglobin 14.1 g/dl (12.0-16.0); Imm Gran Abs Auto 0.27 X10*3/uL (0.00-0.03); Lymphocytes Absolute Auto 0.9 X10*3/uL (1.2-4.9); Lymphocytes Percent Auto 3.3 % (20-40); MANUAL DIFF FLAG SCAN; Mean Corpuscular HGB Conc 31.9 g/dl (31.0-35.0); Monocytes Absolute Auto 1.4 X10*3/uL (0.1-1.2); Monocytes Percent Auto 4.9 % (2-11); Neutrophils Absolute Auto 24.9 x10*3/uL (2.0-8.3); Neutrophils Percent Auto 90.7 % (45-73); Platelet Count 242 X10*3/uL (160-400); Red Cell Distribution Width 14.3 % (11.0-16.0); SCAN SMEAR FLAG 1; White Blood Count 27.4 X10*3/uL (4.8-10.8)
[2021-07-05] MEDS: ondansetron HCL 4 MG/2 ML VIAL IVPUSH (13:51)
[2021-07-05] MEDS: Pantoprazole Sodium 40 MG/10 ML VIAL IVPUSH (13:51)
[2021-07-05 13:56] LABS: INTERNATIONAL NORM RATIO 1.2 (0.9-1.1); Prothrombin Time 14.2 SEC (9.9-13.0)
[2021-07-05 13:58] LABS: Partial Thromboplastin Time 29.5 SEC (24.1-38.0)
[2021-07-05 14:16] LABS: SLIDE REVIEW VERIFIED
[2021-07-05 14:17] LABS: Troponin-I High Sensitivity 12.3 ng/L (<3.5-17.0)
[2021-07-05 14:23] LABS: Alanine Aminotransferase 22 U/L (0-31); Albumin Level 3.9 g/dL (3.5-5.0); Alkaline Phosphatase 63 U/L (39-117); Anion Gap 16 (12-20); Aspartate Amino Transferase 21 U/L (5-31); Bilirubin Direct 0.6 mg/dL (0.0-0.5); Bilirubin Total 1.6 mg/dL (0.0-1.0); Blood Urea Nitrogen 30 mg/dL (9-16); Carbon Dioxide 28 mmol/L (22-29); Chloride 110 mmol/L (96-108); Estimated Glomerular Filt Rate 45; Glucose Random 150 mg/dL (60-115); Lipase 5 U/L (8-78); Potassium 3.1 mmol/L (3.3-5.1); Sodium 151 mmol/L (135-145); Total Protein 7.5 g/dL (6.5-8.0)
[2021-07-05] MEDS: cefTRIAXone sodium 2 GM in 0.9 % Sodium Chloride 50 ML IV (14:28)
[2021-07-05 14:50] LABS: Lactic Acid 3.9 mmol/L (0.5-2.0)
[2021-07-05] MEDS: iohexoL 350 MG/ML 100 ML INFUS..BTL IV (15:02)
--- NOTE | 2021-07-05 15:37 | PC.NURSE ---
Randi Cooley LPN at [facility] reports that she contacted pt's Tesfaye López and he requested for her to be sent to the hospital for further evaluation. TETE Atnon aware.
[2021-07-05 16:15] LABS: Reflex Lactate? Lactic Acid Added
[2021-07-05] MEDS: Morphine Sulfate 4 MG/ML CARTRIDGE IVPUSH (16:18)
[2021-07-05 16:20] LABS: COVID-19 Test Negative (Negative); IDNOW Serial# 16C4AD1C
--- NOTE | 2021-07-05 16:20 | P.CNGI_ITS ---
History of Present Illness Data of Consult Service Date: 07/05/21 Requesting physician: Aurelia Mancini Primary Care Provider: Frank Rudd MD [facility] Reason for consult: sigmoid volvulus 80 yr old f [facility] resident who I was asked to see for abdominal distention and coffee ground emesis She was sent from the [facility] with abdominal distention and coffee ground emesis. No hx available from patient due to severe dementia. There was concern for obstruction and CT was ordered which revealed sigmoid volvulus. Labs: raised Na 151, K 3.1 and raised lactate, WCC 27, HGB stable. Seen by Dr Mancini from surgery as well requiring O2 to keep O2 sats up, BP is holding. Review of Systems Review of Systems: Yes Unobtainable due to mental status PMFSH Past Medical History Medical History Dementia Family History Pertinent family history: unable to obtain Social History Social History (Updated 07/05/21 @ 16:41 by Leo Giordano MD) Unable to assess alcohol history related to: Unable to respond Alcohol intake: never Patient Tobacco Use Status: Tobacco use Unknown Use of substances other than those prescribed or required for medical reasons: Unknown Advance Directives: Yes Advance Directives on File: Yes Advance Directives Date on File: 04/06/20 Meds Allergies Allergy/AdvReac Type Severity Reaction Status Date / Time No Known Allergies Allergy Verified 04/06/20 23:56 [No Known Allergies*] Active Medications: Current Medications Pharmacy Consult (Consult Rx Perform Med Rec) 1 each MISCELLANE ONCE PRN PRN Reason: Consult order Home Medications Medication Instructions Recorded Confirmed Last Taken Type levothyroxine 100 mcg capsule 100 mcg PO DAILY 04/06/20 04/06/20 Unknown History acetaminophen 325 mg tablet 650 mg PO Q4H PRN 07/05/21 07/05/21 Unknown History bisacodyl 10 mg rectal suppository 10 mg [place] DAILY PRN 07/05/21 07/05/21 07/05/21 History chlorhexidine gluconate 0.12 % 15 ml BUCCAL BID 07/05/21 07/05/21 07/05/21 History mouthwash lorazepam 2 mg/mL oral concentrate 0.5 mg PO BID 07/05/21 07/05/21 06/30/21 History (Lorazepam Intensol) nystatin 100,000 unit/gram topical 1 appl TOPICAL BID 07/05/21 07/05/21 07/05/21 History powder potassium chloride 20 mEq 1 tab PO DAILY 07/05/21 07/05/21 07/05/21 History tablet,extended release (K-Tab) sodium phosphates 19 gram-7 118 ml [place] DAILY PRN 07/05/21 07/05/21 07/05/21 History gram/118 mL enema (Fleet Enema) Physical Exam Vital Signs: Vital Signs: Last Vital Signs Pulse 90 07/05/21 16:16 Resp 29 H 07/05/21 16:16 BP 134/75 07/05/21 16:16 Pulse Ox 93 07/05/21 16:16 BMI result Body Mass Index 25.7 EXAM: GENERAL: The patient is frail, weak, VITAL SIGNS:see workflow HEENT: Nonicteric sclerae, PERRLA, EOMI. Oropharynx clear. Moist mucous membranes. Conjunctivae appear well perfused. No thyroid mass. CHEST: Chest wall is nontender. HEART: Regular rate and rhythm without murmurs. LUNGS: Clear to auscultation bilaterally. ABDOMEN: distended, hard abdomen positive bowel sounds, nontender, no organomegaly.no flank tenderness SKIN: No rash, no excessive bruising, petechiae, or purpura. NEUROLOGIC: Cranial nerves II-XII intact without motor/sensory deficit. PSYCH: minimal communication, Extrem: General: Yes normal to inspection Results Labs CBC & Chem 7: 07/05/21 13:42 07/05/21 13:41 Labs: Short CBC 07/05/21 07/05/21 Range/Units 13:41 13:42 WBC 27.4 H (4.8-10.8) X10*3/uL Hgb 14.1 (12.0-16.0) g/dl Hct 44.2 (37.0-47.0) % Plt Count 242 (160-400) X10*3/uL Potassium 3.1 L (3.3-5.1) mmol/L BMP 07/05/21 13:41 Sodium 151 H Potassium 3.1 L Chloride 110 H Carbon Dioxide 28 BUN 30 H Creatinine 1.16 Calcium 10.0 D Liver Function 07/05/21 Range/Units 13:41 Total Bilirubin 1.6 H (0.0-1.0) mg/dL Direct Bilirubin 0.6 H (0.0-0.5) mg/dL AST 21 (5-31) U/L ALT 22 (0-31) U/L Alkaline Phosphatase 63 (39-117) U/L Albumin 3.9 (3.5-5.0) g/dL Imaging CT scan - abdomen: Attestation: I personally reviewed and interpreted this imaging study as follows: (dilated loops of colon and sigmoid volvulus noted) Assessment and Plan (1) Sigmoid volvulus: Status: Acute Plan 1/ Sigmoid volvulus, with probable vascular compromise. Initial plan was for endoscopic detorsion, albeit it high risk due to lyte abnormalities and o2 requirement as well as risk of perforation if ischemic colitis already in place. Dr Mancini discussed with the family and comfort measures were decided upon PLAN: 1/ Cont with comfort measures as planned, if any change in plan and wish to proceed then please feel free to reach out to me. If intervention is planned then will need lytes normalized, antibiotics and may have to be intubated, Procedures Date of Service Date of Service: 07/05/21
--- NOTE | 2021-07-05 16:44 | PHA.MEDREC ---
Pharmacy Consult ? Medication Reconciliation Pharmacy has completed the medication reconciliation. BASED ON LIST FROM [facility]
[2021-07-05] MEDS: Lidocaine HCl 4 % MPF w/MADgic 5 ML AMPUL 1 APPL TOPICAL (16:50)
--- NOTE | 2021-07-05 16:51 | PC.NURSE ---
NG tube #16 inserted into left nostril by GABY Mcgee-patient pre medicated with Lidocaine prior to procedure-patient tolerated procedure with minimal discomfort, placement verified by auscultation-NG tube connected to continuous suction-putting out dark brown gastric content.
[2021-07-05] MEDS: KCl 40 mEq in 5% Dex/0.45% Sod 40 MEQ/1,000 ML IV.SOLN 150 MEQ IVCONT (17:01)
--- NOTE | 2021-07-05 17:48 | PM.CNGS ---
History of Present Illness Consult details Consult date: 07/05/21 Requesting physician: Brandie Maldonado Narrative: 80 year old female with moderate dementia for many years and in long term noted to have abdominal distension and not doing well. brought to ER where abdo hugely distended , hard tender and pt not very responsive. brown involving CT scan showing sigmoid volvulus with probable ischemia and vascular comprovmise, wbc elevated and lactate elevated as well. surgical consult called - pt is DNR. Review of Systems Review of Systems: Yes Unobtainable due to mental status PMFSH Past Medical History Medical History Dementia Social History Social History (Updated 07/05/21 @ 16:41 by Leo Giordano MD) Unable to assess alcohol history related to: Unable to respond Alcohol intake: never Patient Tobacco Use Status: Tobacco use Unknown Use of substances other than those prescribed or required for medical reasons: Unknown Advance Directives: Yes Advance Directives on File: Yes Advance Directives Date on File: 04/06/20 Meds Allergies Allergy/AdvReac Type Severity Reaction Status Date / Time No Known Allergies Allergy Verified 04/06/20 23:56 [No Known Allergies*] Active Medications: Current Medications Potassium Chloride/Dextrose/Sod Cl () 40 meq in 1,000 mls @ 150 mls/hr IVCONT .[id number] HUNG Last Admin: 07/05/21 17:01 Dose: 150 mls/hr Documented by: Pharmacy Consult (Consult Rx Perform Med Rec) 1 each MISCELLANE ONCE PRN PRN Reason: Consult order Home Medications Medication Instructions Recorded Confirmed Last Taken Type levothyroxine 100 mcg capsule 100 mcg PO DAILY 04/06/20 07/05/21 07/05/21 History acetaminophen 325 mg tablet 650 mg PO Q4H PRN 07/05/21 07/05/21 Unknown History bisacodyl 10 mg rectal suppository 10 mg ME DAILY PRN 07/05/21 07/05/21 07/05/21 History chlorhexidine gluconate 0.12 % 15 ml BUCCAL BID 07/05/21 07/05/21 07/05/21 History mouthwash lorazepam 2 mg/mL oral concentrate 0.5 mg PO BID 07/05/21 07/05/21 06/30/21 History (Lorazepam Intensol) nystatin 100,000 unit/gram topical 1 appl TOPICAL BID 07/05/21 07/05/21 07/05/21 History powder potassium chloride 20 mEq 1 tab PO DAILY 07/05/21 07/05/21 07/05/21 History tablet,extended release (K-Tab) sodium phosphates 19 gram-7 118 ml [place] DAILY PRN 07/05/21 07/05/21 07/05/21 History gram/118 mL enema (Fleet Enema) Physical Exam Vital Signs: Vital Signs: Last Vital Signs Pulse 88 07/05/21 16:42 Resp 17 07/05/21 16:42 BP 122/62 07/05/21 16:42 Pulse Ox 93 07/05/21 16:42 BMI result Body Mass Index 25.7 Const: General: acute distress moderate Limitations: altered mental status GI: Other: abdomen hugely distended tight tender diffusely high pitched noises no visible scars from previous surgery Results Labs Result diagrams: 07/05/21 13:42 07/05/21 13:41 Labs: Abnormal lab results 07/05/21 07/05/21 07/05/21 Range/Units 13:41 13:42 13:42 WBC 27.4 H (4.8-10.8) X10*3/uL Immature Gran % (Auto) 1.0 H (0.0-0.4) % Neut % (Auto) 90.7 H (45-73) % Lymph % (Auto) 3.3 L (20-40) % Lymph # (Auto) 0.9 L (1.2-4.9) X10*3/uL [place] # (Auto) 1.4 H (0.1-1.2) X10*3/uL Abs Immat Gran (auto) 0.27 H (0.00-0.03) X10*3/uL Absolute Neuts (auto) 24.9 H (2.0-8.3) x10*3/uL PT 14.2 H (9.9-13.0) SEC INR 1.2 H (0.9-1.1) Sodium 151 H (135-145) mmol/L Potassium 3.1 L (3.3-5.1) mmol/L Chloride 110 H (96-108) mmol/L BUN 30 H (9-16) mg/dL Random Glucose 150 H (60-115) mg/dL Lactic Acid (0.5-2.0) mmol/L Total Bilirubin 1.6 H (0.0-1.0) mg/dL Direct Bilirubin 0.6 H (0.0-0.5) mg/dL Lipase 5 L (8-78) U/L 07/05/21 Range/Units 14:11 WBC (4.8-10.8) X10*3/uL Immature Gran % (Auto) (0.0-0.4) % Neut % (Auto) (45-73) % Lymph % (Auto) (20-40) % Lymph # (Auto) (1.2-4.9) X10*3/uL [place] # (Auto) (0.1-1.2) X10*3/uL Abs Immat Gran (auto) (0.00-0.03) X10*3/uL Absolute Neuts (auto) (2.0-8.3) x10*3/uL PT (9.9-13.0) SEC INR (0.9-1.1) Sodium (135-145) mmol/L Potassium (3.3-5.1) mmol/L Chloride (96-108) mmol/L BUN (9-16) mg/dL Random Glucose (60-115) mg/dL Lactic Acid 3.9 H* (0.5-2.0) mmol/L Total Bilirubin (0.0-1.0) mg/dL Direct Bilirubin (0.0-0.5) mg/dL Lipase (8-78) U/L Short CBC 07/05/21 Range/Units 13:42 WBC 27.4 H (4.8-10.8) X10*3/uL Hgb 14.1 (12.0-16.0) g/dl Hct 44.2 (37.0-47.0) % Plt Count 242 (160-400) X10*3/uL BMP 07/05/21 13:41 Sodium 151 H Potassium 3.1 L Chloride 110 H Carbon Dioxide 28 BUN 30 H Creatinine 1.16 Calcium 10.0 D Liver Function 07/05/21 Range/Units 13:41 Total Bilirubin 1.6 H (0.0-1.0) mg/dL Direct Bilirubin 0.6 H (0.0-0.5) mg/dL AST 21 (5-31) U/L ALT 22 (0-31) U/L Alkaline Phosphatase 63 (39-117) U/L Albumin 3.9 (3.5-5.0) g/dL All other labs normal. Imaging Abdomen CT scan report/results: report reviewed and image reviewed CT scan - pelvis: report reviewed and image reviewed Assessment and Plan (1) Sigmoid volvulus: Status: Acute Plan 80 year old female, moderate dementia living in long term for years and not alert and communicative comes in with abdominal distension and pain - w.u revealing wbc 27, lactic acid 3.[address] scan showing significant large bowel obstruction due to sigmoid volvulus with mesentery twist suggesting ischemia. pt is DNR. at husbands request i spoke to his cousin who is a retired radiologist and we went over her status and findings on ct scan. options - do nothing, try to decompress with sigmoidoscopy or to OR for laparotomy probable bowel resection and ostomy creation - i then talked to pts who agrees not to do anything further after talking to the patients son. pt will be treated with ng tube and ivf and comfort care no surgical intervention to be done understanding this is a fatal situation. i think this is the right choice for the family to make in this patient with her unfortunate history. Procedures Date of Service Date of Service: 07/05/21
--- NOTE | 2021-07-05 18:39 | PM.IMHP ---
History of Present Illness Date of Service: 07/05/21 Attending physician on admission: Doris Reyes Chief Complaint: sigmoid valvulous 80 year old female presenting to the emergency department today with abdominal pain and vomiting. Patient's physical exam showed a significantly distended and rigid abdomen with absent bowel sounds. Patient had an episode of coffee ground type emesis while in the department. Patient's blood work showed a markedly elevated WBC count at 27.4 and a lactic acidosis of 3.9. Additionally, the patient's potassium was low at 3.1. Patient's EKG was unremarkable. Patient's chest x-ray showed dilated bowel below the diaphragm. Patient's abdominal CT showed sigmoid volvulus and secondary large bowel obstruction as well as stranding of the surrounding fat of the small bowel mesentery with possoible ?large bowel with possible vascular compromise.?chest CT showed bronchial wall thickening in the bilateral dependent lower lobes that could be possible small bilateral bronchopneumonia. Patient was seen by ED physician, surgery, GI and with extensive discussion with family decided for comfort measures. Surgery recommended hospitalist admission since family decided no surgical intervention and comfort measures. Patient is getting admitted for comfort/hospice. Review of Systems Review of Systems: Unable to get accept whatever mentioned above. Patient able to give any history, lethargic. [facility] Medical History Dementia Pertinent family history: Unable to give any history. Social History Unable to assess alcohol history related to: Unable to respond Alcohol intake: never Patient Tobacco Use Status: Tobacco use Unknown Use of substances other than those prescribed or required for medical reasons: Unknown Advance Directives: Yes Advance Directives on File: Yes Advance Directives Date on File: 04/06/20 Meds Allergies Allergy/AdvReac Type Severity Reaction Status Date / Time No Known Allergies Allergy Verified 04/06/20 23:56 [No Known Allergies*] Active Medications: Current Medications Potassium Chloride/Dextrose/Sod Cl () 40 meq in 1,000 mls @ 80 mls/hr IVCONT .[id number] HUNG Last Admin: 07/05/21 17:01 Dose: 150 mls/hr Documented by: Lorazepam (Lorazepam 2 Mg/Ml Vial) 0.5 mg IVPUSH Q4H PRN PRN Reason: anxiety Morphine Sulfate (Morphine Sulfate 2 Mg/Ml Cartridge) 2 mg IVPUSH Q2H PRN; Protocol PRN Reason: Pain, Mild (Pain Scale 1-3) Pharmacy Consult (Consult Rx Perform Med Rec) 1 each MISCELLANE ONCE PRN PRN Reason: Consult order Scopolamine (Scopolamine 1.5 Mg Patch.Td.3) 1.5 mg EAR-BEHIND ONCE HUNG Sodium Chloride (0.9 % Sodium Chloride Flush 3 Ml Syringe) 3 ml IVFLUSH QSHIFT [facility] Home Medications Medication Instructions Recorded Confirmed Last Taken Type levothyroxine 100 mcg capsule 100 mcg PO DAILY 04/06/20 07/05/21 07/05/21 History acetaminophen 325 mg tablet 650 mg PO Q4H PRN 07/05/21 07/05/21 Unknown History bisacodyl 10 mg rectal suppository 10 mg [place] DAILY PRN 07/05/21 07/05/21 07/05/21 History chlorhexidine gluconate 0.12 % 15 ml BUCCAL BID 07/05/21 07/05/21 07/05/21 History mouthwash lorazepam 2 mg/mL oral concentrate 0.5 mg PO BID 07/05/21 07/05/21 06/30/21 History (Lorazepam Intensol) nystatin 100,000 unit/gram topical 1 appl TOPICAL BID 07/05/21 07/05/21 07/05/21 History powder potassium chloride 20 mEq 1 tab PO DAILY 07/05/21 07/05/21 07/05/21 History tablet,extended release (K-Tab) sodium phosphates 19 gram-7 118 ml [place] DAILY PRN 07/05/21 07/05/21 07/05/21 History gram/118 mL enema (Fleet Enema) Physical Exam Vital Signs and Narrative: Vital Signs: Last Vital Signs Pulse 99 07/05/21 18:06 Resp 18 07/05/21 18:06 BP 118/63 07/05/21 18:06 Pulse Ox 94 07/05/21 18:02 BMI result Body Mass Index 25.7 Appearance: weak, lethargic. cvs: rrr, [id number]. res: air enrty seems diminshed , no wheezing or rales. abd: abdomen hugely distended tight tender diffusely high pitched noises no visible scars from previous surgery. ext pulses present , no cyanosis . neuro: weak, lethargic Results Labs CBC and Chem 7: 07/05/21 13:42 07/05/21 13:41 Labs: Laboratory Results - last 24 hr 07/05/21 07/05/21 07/05/21 13:41 13:42 13:42 MCV 94.0 MCH 30.0 MCHC 31.9 RDW 14.3 Plt Count 242 MPV 12.0 Immature Gran % (Auto) 1.0 H Neut % (Auto) 90.7 H Lymph % (Auto) 3.3 L [place] % (Auto) 4.9 Eos % (Auto) 0.0 Baso % (Auto) 0.1 Lymph # (Auto) 0.9 L [place] # (Auto) 1.4 H Eos # (Auto) 0.0 Baso # (Auto) 0.0 Abs Immat Gran (auto) 0.27 H Absolute Neuts (auto) 24.9 H Absolute Nucleated RBC 0.000 Nucleated RBC % (auto) 0.0 Smear Tech's Comments VERIFIED PT 14.2 H INR 1.2 H APTT 29.5 Anion Gap 16 Estim Creat Clear Calc 39.0 Estimated GFR 45 Random Glucose 150 H Lactic Acid Calcium 10.0 D Total Bilirubin 1.6 H Direct Bilirubin 0.6 H AST 21 ALT 22 Alkaline Phosphatase 63 Troponin I High Sens Total Protein 7.5 Albumin 3.9 Lipase 5 L COVID-19 ([facility]) COVID-[facility] Clin Com Blood Type Antibody Screen 07/05/21 07/05/21 07/05/21 13:42 14:11 14:11 MCV MCH MCHC RDW Plt Count MPV Immature Gran % (Auto) Neut % (Auto) Lymph % (Auto) [place] % (Auto) Eos % (Auto) Baso % (Auto) Lymph # (Auto) [place] # (Auto) Eos # (Auto) Baso # (Auto) Abs Immat Gran (auto) Absolute Neuts (auto) Absolute Nucleated RBC Nucleated RBC % (auto) Smear Tech's Comments PT INR APTT Anion Gap Estim Creat Clear Calc Estimated GFR Random Glucose Lactic Acid 3.9 H* Calcium Total Bilirubin Direct Bilirubin AST ALT Alkaline Phosphatase Troponin I High Sens 12.3 Total Protein Albumin Lipase COVID-19 ([facility]) [facility] Clin Com Blood Type A Positive Antibody Screen NEGATIVE 07/05/21 15:57 MCV MCH MCHC RDW Plt Count MPV Immature Gran % (Auto) Neut % (Auto) Lymph % (Auto) [place] % (Auto) Eos % (Auto) Baso % (Auto) Lymph # (Auto) [place] # (Auto) Eos # (Auto) Baso # (Auto) Abs Immat Gran (auto) Absolute Neuts (auto) Absolute Nucleated RBC Nucleated RBC % (auto) Smear Tech's Comments PT INR APTT Anion Gap Estim Creat Clear Calc Estimated GFR Random Glucose Lactic Acid Calcium Total Bilirubin Direct Bilirubin AST ALT Alkaline Phosphatase Troponin I High Sens Total Protein Albumin Lipase COVID-19 ([facility]) Negative COVID-19 Clin Com See Note Blood Type Antibody Screen Imaging Radiologist's Impressions: Impressions Chest X-Ray 07/05/21 14:50 IMPRESSION: No evidence of pneumonia. 5 x 10 mm sclerotic density at the left lung base question related to left fourth rib calcified costochondral cartilage. Dilated bowel below the diaphragm. Abdomen/Pelvis CT 07/05/21 15:05 IMPRESSION: Sigmoid volvulus and secondary large bowel obstruction. There is focal wall thickening of the sigmoid colon, stranding of the surrounding fat and stranding of the small bowel mesentery and secondary vascular compromise cannot be excluded. Small amount of ascites in the pelvis. No free air. Small esophageal hernia. Atherosclerotic disease. Small left renal cyst. Fleischner guidelines were followed. Findings were communicated to Cami Maldonado by telephone on 07/05/2021 at 3:[address] 07/05/21 15:14 IMPRESSION: Limited exam due to artifact from respiratory motion. Bronchial wall thickening in the bilateral dependent lower lobes and possible small bilateral bronchopneumonia. Fleischner guidelines were followed. Assessment and Plan (1) Large bowel obstruction: Status: Acute (2) Ischemia, bowel: Status: Acute (3) Pneumonia: Status: Acute (4) Sigmoid volvulus: Status: Acute Plan 80 year old female, moderate dementia living in halfway for years and not alert and communicative comes in with abdominal distension and pain - w.u revealing wbc 27, lactic acid 3.[address] scan showing significant 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 Initially in the ED- Patient received IV antibiotics, IV fluids, IV potassium, and IV Morphine while in the department. Patient had an NG tube placed : After extensive conversation By ED physician and the surgeon, Dr. Mancini, the patient's decided on the patient being comfort care only. Patient was started on comfort meds, NG suction for comfort. In addition discussed above with patient family again-including patient has spent and son about above they concur with above. Patient id comfort measures only. Quality Stroke Does the patient have a stroke diagnosis?: No VTE Prior VTE?: No VTE Risk Level:: Medical - moderate - high VTE Device Contraindication: N/A - Device Ordered VTE Drug Contraindication: N/A - Med Ordered
[2021-07-05 18:46] LABS: Cancel Lactic Acid Canceled
[2021-07-05] MEDS: HYDROmorphone HCl 1 MG/ML SYRINGE IVPUSH (19:05)
--- NOTE | 2021-07-05 19:05 | PC.NURSE ---
Took report from Rhoda to assume care of PT, Pt sleeping, NG tube in place attached to intermittent suction, Pt needs met at this time, at bedside, this RN continues to monitor,
[2021-07-06] VITALS: BP 79/55; PULSE 97; RESP 16; TEMP 37.1; O2SAT 97
[2021-07-06] MEDS: Morphine Sulfate 2 MG/ML CARTRIDGE IVPUSH ×4 (00:20→11:26)
[2021-07-06] MEDS: 0.9 % Sodium Chloride Flush 3 ML SYRINGE IVFLUSH ×3 (00:23→16:40)
[2021-07-06] MEDS: KCl 40 mEq in 5% Dex/0.45% Sod 40 MEQ/1,000 ML IV.SOLN 80 MEQ IVCONT ×2 (00:38→11:27)
--- NOTE | 2021-07-06 07:49 | HO.PM.IMPN ---
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 res: air enrty seems diminshed , no wheezing or rales. abd: abdomen hugely distended tight tender diffusely high pitched noises no visible scars from previous surgery. Objective Data Active Medications Potassium Chloride/Dextrose/Sod Cl () 40 meq in 1,000 mls @ 80 mls/hr IVCONT .[id number] [facility] Last Admin: 07/06/21 00:38 Dose: 80 mls/hr Documented by: CED Lorazepam (Lorazepam 2 Mg/Ml Vial) 0.5 mg IVPUSH Q4H PRN PRN Reason: anxiety Morphine Sulfate (Morphine Sulfate 2 Mg/Ml Cartridge) 2 mg IVPUSH Q2H PRN; Protocol PRN Reason: Pain, Mild (Pain Scale 1-3) Last Admin: 07/06/21 07:45 Dose: 2 mg Documented by: PEDRO Pharmacy Consult (Consult Rx Perform Med Rec) 1 each MISCELLANE ONCE PRN PRN Reason: Consult order Scopolamine (Scopolamine 1.5 Mg Patch.Td.3) 1.5 mg EAR-BEHIND ONCE [facility] Sodium Chloride (0.9 % Sodium Chloride Flush 3 Ml Syringe) 3 ml IVFLUSH QSHIFT [facility] Last Admin: 07/06/21 00:23 Dose: 3 ml Documented by: CED Sodium Chloride (0.9 % Sodium Chloride Flush 3 Ml Syringe) 3 ml IVFLUSH QSHIFT [facility] Last Admin: 07/06/21 07:44 Dose: Not Given Documented by: PEDRO Non-Admin Reason: IV Running Labs CBC & Chem 7: 07/05/21 13:42 07/05/21 13:41 Labs: Laboratory Results - last 24 hr 07/05/21 07/05/21 07/05/21 13:41 13:42 13:42 MCV 94.0 MCH 30.0 MCHC 31.9 RDW 14.3 Plt Count 242 MPV 12.0 Immature Gran % (Auto) 1.0 H Neut % (Auto) 90.7 H Lymph % (Auto) 3.3 L [place] % (Auto) 4.9 Eos % (Auto) 0.0 Baso % (Auto) 0.1 Lymph # (Auto) 0.9 L [place] # (Auto) 1.4 H Eos # (Auto) 0.0 Baso # (Auto) 0.0 Abs Immat Gran (auto) 0.27 H Absolute Neuts (auto) 24.9 H Absolute Nucleated RBC 0.000 Nucleated RBC % (auto) 0.0 Smear Tech's Comments VERIFIED PT 14.2 H INR 1.2 H APTT 29.5 Anion Gap 16 Estim Creat Clear Calc 39.0 Estimated GFR 45 Random Glucose 150 H Lactic Acid Lactic Acid F/U @ 2Hr Calcium 10.0 D Total Bilirubin 1.6 H Direct Bilirubin 0.6 H AST 21 ALT 22 Alkaline Phosphatase 63 Troponin I High Sens Total Protein 7.5 Albumin 3.9 Lipase 5 L COVID-19 ([facility]) [employer] Blood Type Antibody Screen 07/05/21 07/05/21 07/05/21 13:42 14:11 14:11 MCV MCH MCHC RDW Plt Count MPV Immature Gran % (Auto) Neut % (Auto) Lymph % (Auto) [place] % (Auto) Eos % (Auto) Baso % (Auto) Lymph # (Auto) [place] # (Auto) Eos # (Auto) Baso # (Auto) Abs Immat Gran (auto) Absolute Neuts (auto) Absolute Nucleated RBC Nucleated RBC % (auto) Smear Tech's Comments PT INR APTT Anion Gap Estim Creat Clear Calc Estimated GFR Random Glucose Lactic Acid 3.9 H* Lactic Acid F/U @ 2Hr Calcium Total Bilirubin Direct Bilirubin AST ALT Alkaline Phosphatase Troponin I High Sens 12.3 Total Protein Albumin Lipase COVID-19 ([facility]) [employer] Blood Type A Positive Antibody Screen NEGATIVE 07/05/21 07/05/21 15:57 18:19 MCV MCH MCHC RDW Plt Count MPV Immature Gran % (Auto) Neut % (Auto) Lymph % (Auto) [place] % (Auto) Eos % (Auto) Baso % (Auto) Lymph # (Auto) [place] # (Auto) Eos # (Auto) Baso # (Auto) Abs Immat Gran (auto) Absolute Neuts (auto) Absolute Nucleated RBC Nucleated RBC % (auto) Smear Tech's Comments PT INR APTT Anion Gap Estim Creat Clear Calc Estimated GFR Random Glucose Lactic Acid Lactic Acid F/U @ 2Hr Cancelled Calcium Total Bilirubin Direct Bilirubin AST ALT Alkaline Phosphatase Troponin I High Sens Total Protein Albumin Lipase COVID-19 ([facility]) Negative COVID-19 Clin Com See Note Blood Type Antibody Screen Assessment and Plan (1) Large bowel obstruction: Status: Acute (2) Ischemia, bowel: Status: Acute Plan 80 year old female, moderate dementia living in skilled nursing for years and not alert and communicative comes in with abdominal distension and pain - w.u revealing wbc 27, lactic acid 3.[address] scan showing significant 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 Initially in the ED- Patient received IV antibiotics, IV fluids, IV potassium, and IV Morphine while in the department. Patient had an NG tube placed : After extensive conversation By ED physician and the surgeon, Dr. Mancini, the patient's decided on the patient being comfort care only. Patient was started on comfort meds, NG suction for comfort. In addition discussed above with patient family again-including patient has spent and son about above they concur with above.? Patient id comfort measures only. Quality Stroke Does the patient have a stroke diagnosis?: No VTE Prior VTE?: No VTE Risk Level:: Medical - moderate - high VTE Device Contraindication: N/A - Device Ordered VTE Drug Contraindication: N/A - Med Ordered
--- NOTE | 2021-07-06 09:22 | MHC.CM.PN ---
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 Patient is from [facility] and per Tesfaye, Patient will be kept comfortable here. CM has initiated and will follow for dc planning. Patient has received Luminary Micro/sim4tec vax X2.
[2021-07-06] MEDS: LORazepam 2 MG/ML VIAL 0.5 MG IVPUSH (10:56)
[2021-07-06] MEDS: HYDROmorphone HCl 0.5 MG/0.5 ML SYRINGE IVPUSH ×4 (12:39→21:19)
[2021-07-06 15:06] VITALS: RESP 18
[2021-07-07] MEDS: 0.9 % Sodium Chloride Flush 3 ML SYRINGE IVFLUSH ×8 (00:18→20:31)
[2021-07-07] MEDS: HYDROmorphone HCl 0.5 MG/0.5 ML SYRINGE IVPUSH ×3 (06:18→15:38)
[2021-07-07] MEDS: LORazepam 2 MG/ML VIAL 0.5 MG IVPUSH (12:55)
[2021-07-07 13:01] VITALS: BMI 25.7
--- NOTE | 2021-07-07 13:41 | P.PNIM_ITS ---
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 Physical Exam Vital Signs: Vital Signs: Last Vital Signs Temp 98.7 F 07/06/21 00:00 Pulse 97 07/06/21 00:00 Resp 18 07/06/21 15:06 BP 79/55 L 07/06/21 00:00 Pulse Ox 97 07/06/21 00:00 BMI result Body Mass Index 25.7 ?Appearance: unresposive cvs: rrr, [id number]. res: air enrty seems diminshed , no wheezing or rales. abd: abdomen hugely distended tight tender diffusely high pitched noises Objective Data Active Medications Hydromorphone HCl (Hydromorphone Hcl 0.5 Mg/0.5 Ml Syringe) 0.5 mg IVPUSH Q2H PRN; Protocol PRN Reason: Pain, Mild (Pain Scale 1-3) Last Admin: 07/07/21 11:43 Dose: 0.5 mg Documented by: POPEYE Lorazepam (Lorazepam 2 Mg/Ml Vial) 0.5 mg IVPUSH Q4H PRN PRN Reason: anxiety Last Admin: 07/07/21 12:55 Dose: 0.5 mg Documented by: POPEYE Pharmacy Consult (Consult Rx Perform Med Rec) 1 each MISCELLANE ONCE PRN PRN Reason: Consult order Scopolamine (Scopolamine 1.5 Mg Patch.Td.3) 1.5 mg EAR-BEHIND ONCE [facility] Sodium Chloride (0.9 % Sodium Chloride Flush 3 Ml Syringe) 3 ml IVFLUSH QSVAFT [facility] Last Admin: 07/07/21 09:04 Dose: 3 ml Documented by: POPEYE Sodium Chloride (0.9 % Sodium Chloride Flush 3 Ml Syringe) 3 ml IVFLUSH QSHIFT [facility] Last Admin: 07/07/21 09:04 Dose: 3 ml Documented by: POPEYE Labs CBC & Chem 7: 07/05/21 13:42 07/05/21 13:41 Microbiology Microbiology Results: Microbiology 07/05/21 14:11 Blood Culture - Preliminary Blood - Venous No growth after 24 hours. 07/05/21 14:11 Blood Culture - Preliminary Blood - Venous No growth after 24 hours. 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 Initially in the ED- Patient received IV antibiotics, IV fluids, IV potassium, a nd IV Morphine while in the department. Patient had an NG tube placed : After extensive conversation By ED physician and the surgeon, Dr. Mancini, the patient's decided on the patient being comfort care only. Patient was started on comfort meds, NG suction for comfort.will continue curre nt managemnt. Quality Stroke Does the patient have a stroke diagnosis?: No VTE Prior VTE?: No VTE Risk Level:: Medical - moderate - high VTE Device Contraindication: N/A - Device Ordered VTE Drug Contraindication: N/A - Med Ordered
--- NOTE | 2021-07-07 14:34 | MHC.CM.PN ---
Addendum entered by Vicky Moore 07/07/21 14:38: The patient meets for GIP. Original Note[facility] 80 [facility] She has been on comfort care measures. A Hospice referral for an info meet has been scheduled with the Pts Spouse.
--- NOTE | 2021-07-07 15:37 | P.DS_ITS ---
DS: Providers Provider Date of Service: 07/07/21 Date of admission: 07/05/21 18:32 Primary care physician: Frank Rudd MD DS: Diagnosis Discharge Diagnosis (1) Large bowel obstruction: Status: Acute (2) Ischemia, bowel: Status: Acute DS: Summary Hospital Course Hospital Course: 80 year old female presenting to the emergency department today with abdominal pain and vomiting. Patient's physical exam showed a significantly distended and rigid abdomen with absent bowel sounds. Patient had an episode of coffee ground type emesis while in the department. Patient's blood work showed a markedly elevated WBC count at 27.4 and a lactic acidosis of 3.9. Additionally, the patient's potassium was low at 3.1. Patient's EKG was unremarkable. Patient's chest x-ray showed dilated bowel below the diaphragm. Patient's abdominal CT sh owed sigmoid volvulus and secondary large bowel obstruction as well as stranding of the surrounding fat of the small bowel mesentery with possoible??large bowel with possible vascular compromise.?chest CT showed bronchial wall thickening in the bilateral dependent lower lobes that could be possible small bilateral bronchopneumonia. Patient was seen by ED physician, surgery, GI and with extensive discussion with family decided for comfort measures. Surgery recommended hospitalist admission since family decided no surgical intervention and comfort measures. Patient is getting admitted for comfort/hospice. Time Spent with Patient Time attestation: Total time spent providing and/or coordinating discharge services: Physical Exam Vital Signs: Vital Signs: Last Vital Signs Temp 98.7 F 07/06/21 00:00 Pulse 97 07/06/21 00:00 Resp 18 07/06/21 15:06 BP 79/55 L 07/06/21 00:00 Pulse Ox 97 07/06/21 00:00 BMI result Body Mass Index 25.7 DS: Data Data Completed and Pending Labs on day of discharge: Preliminary micro results at discharge 07/05/21 14:11 Blood Culture - Preliminary Blood - Venous No growth after 24 hours. 07/05/21 14:11 Blood Culture - Preliminary Blood - Venous No growth after 24 hours. Discharge Plan Discharge Patient Disposition: Home, Self-Care Discharge Diagnosis: large bowel obstruction with possible vascular compromise Referrals: Frank Rudd MD [Primary Care Provider] - 1 Week Discharge Medications: New hydromorphone 0.5 mg/0.5 mL Syringe 0.5 mg IVPUSH Q2H PRN (Reason: Pain, Mild (Pain Scale 1-3)) Qty: 0.5 0RF Protocol: Hold for RR < HOLD and contact provider for RR < (bpm): 12 lorazepam 2 mg/mL Solution 0.5 mg IVPUSH Q4H PRN (Reason: anxiety) Qty: 1 0RF scopolamine base [Transderm-Scop] 1 mg over 3 days Patch 3 Day 1.5 mg EAR-BEHIND ONCE Qty: 1 0RF Discontinued levothyroxine 100 mcg Capsule 100 mcg PO DAILY 0RF acetaminophen 325 mg Tablet 650 mg PO Q4H PRN (Reason: Pain) 0RF bisacodyl 10 mg Suppository 10 mg DE DAILY PRN (Reason: Constipation) 0RF Fleet Enema 19-7 gram/118 mL Enema 118 ml DE DAILY PRN (Reason: Constipation) 0RF nystatin 100,000 unit/gram Powder 1 appl TOPICAL BID 0RF lorazepam [Lorazepam Intensol] 2 mg/mL Concentrate 0.5 mg PO BID 0RF chlorhexidine gluconate 0.12 % Mouthwash 15 ml BUCCAL BID 0RF Rx Instructions: AFTER FOOD SWISH AND SPIT potassium chloride [K-Tab] 20 mEq tablet extended release 1 tab PO DAILY 0RF Diet: other 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 Health Concerns: as above. Plan of Treatment: as above. Assessment: as above.
--- NOTE | 2021-07-07 23:35 | PC.NURSE ---
Pt remains unresponsive. Laying in bed, appears comfortable at this time. Repo Q2H. NG tube in place. RR 24. Will continue to monitor.
[2021-07-08] MEDS: 0.9 % Sodium Chloride Flush 3 ML SYRINGE IVFLUSH ×4 (08:31→16:24)
[2021-07-08] MEDS: LORazepam 2 MG/ML VIAL 0.5 MG IVPUSH (08:31)
[2021-07-08] MEDS: HYDROmorphone HCl 0.5 MG/0.5 ML SYRINGE IVPUSH (10:04)
--- NOTE | 2021-07-08 13:52 | HO.PM.IMPN ---
Subjective Subjective Date of Service: 07/08/21 Interval History: comfort measure for comfort measures from sigmoid volvulous Review of Systems Review of Systems: Yes Unobtainable due to mental status Physical Exam Vital Signs: Vital Signs: Last Vital Signs Temp 98.7 F 07/06/21 00:00 Pulse 97 07/06/21 00:00 Resp 18 07/06/21 15:06 BP 79/55 L 07/06/21 00:00 Pulse Ox 97 07/06/21 00:00 BMI result Body Mass Index 25.7 Const: Other: appear comfortable, in coma Objective Data Active Medications Hydromorphone HCl (Hydromorphone Hcl 0.5 Mg/0.5 Ml Syringe) 1 mg IVPUSH Q1H PRN; Protocol PRN Reason: Pain, Mild (Pain Scale 1-3) Lorazepam (Lorazepam 2 Mg/Ml Vial) 0.5 mg IVPUSH Q4H PRN PRN Reason: anxiety Last Admin: 07/08/21 08:31 Dose: 0.5 mg Documented by: DONA Pharmacy Consult (Consult Rx Perform Med Rec) 1 each MISCELLANE ONCE PRN PRN Reason: Consult order Scopolamine (Scopolamine 1.5 Mg Patch.Td.3) 1.5 mg EAR-BEHIND ONCE [facility] Sodium Chloride (0.9 % Sodium Chloride Flush 3 Ml Syringe) 3 ml IVFLUSH QSHIFT [facility] Last Admin: 07/08/21 08:31 Dose: 3 ml Documented by: DONA Sodium Chloride (0.9 % Sodium Chloride Flush 3 Ml Syringe) 3 ml IVFLUSH QSHIFT [facility] Last Admin: 07/08/21 08:31 Dose: 3 ml Documented by: DONA Labs CBC & Chem 7: 07/05/21 13:42 07/05/21 13:41 Microbiology Microbiology Results: Microbiology 07/05/21 14:11 Blood Culture - Preliminary Blood - Venous No growth after 48 hours. 07/05/21 14:11 Blood Culture - Preliminary Blood - Venous No growth after 48 hours. 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 Initially in the ED- Patient received IV antibiotics, IV fluids, IV potassium, and IV Morphine while in the department. Patient had an NG tube placed : After extensive conversation By ED physician and the surgeon, Dr. Mancini, the patient's decided on the patient being comfort care only. Plan: Continue comofort measures only, increse dilaudid for comfort. Ativan for anxiety. Quality Stroke Does the patient have a stroke diagnosis?: No VTE Prior VTE?: No VTE Risk Level:: Medical - moderate - high VTE Device Contraindication: N/A - Device Ordered VTE Drug Contraindication: N/A - Med Ordered
[2021-07-08 15:07] VITALS: RESP 16
--- NOTE | 2021-07-08 16:01 | MHC.CM.PN ---
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 Hospice was called to provide an informational meeting. Yesterday, only GIP was explained. Hospice [facility] provided the info. Hospice in a facility is the plan. [facility] the preference obtained. A call was placed. T/W spoke with Jane. She instructed we send the referral via [facility]look. Info was sent via [facility]look. [facility] [place] [facility] [place] The spouse does not feel that the pt is safe at [facility] r/t staffing shortage. [facility]st choice [facility]. CM will continue bed search.
[2021-07-08 16:22] VITALS: RESP 24
[2021-07-08] MEDS: HYDROmorphone HCl 0.5 MG/0.5 ML SYRINGE 1 MG IVPUSH (16:22)
[2021-07-08 18:55] VITALS: RESP 18
--- NOTE | 2021-07-08 22:50 | PM.DDS ---
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 Other finding included hypokalemia (K 3.1), toxic metabolic encephalpathy on top of baseline dementia, Hypernatremia from dehydration with sodium of 151 Initially in the ED- Patient received IV antibiotics, IV fluids, IV potassium, and IV Morphine while in the department. Patient had an NG tube placed : After extensive conversation By ED physician and the surgeon, Dr. Mancini, the patient's decided on the patient being comfort care only--Given Ativan and Morphine for comfort. Patient expirired on 07/08/2021 at 22:50. Final Diagnoses: Ischemic Bowel Bowel obstruction Intraabdominal Severe sepsis due to ischemic colitis Pneumonia Toxicic metabolic encephalopathy Hypokalemia Hypernatremia Lactic acidosis Secondary Diagnosies: Dementia 07/08/2021 at 22:50. Additional Data Attending physician: Herman Reaves MD
--- NOTE | 2021-07-08 23:03 | PM.EVENT ---
Event Note Date of Service: 07/08/21 Event Note: note: Around 22:45 on 07/08/2021 RN mentioned that patient appears to be . Event denies am in the patient, patient not responding, no corneal reflex, pupils are fixed and dilated; Patient pronounced on 07/08/2021 at 22:50. Family is notified
== END 2021-07-08 22:50 | disposition expired | DRG 951 ==
LOC: HO.ED 16:51 → HO.EDOVER 19:06 → HO.IMC 19:13
PROVIDERS: Physician Assistant Medical; Admitting Provider Internal Medicine; Emergency Provider Emergency Medicine; PCP Family Medicine; Visit Provider Internal Medicine
DX: Z51.5 Encounter for palliative care (principal); A41.9 Sepsis, unspecified organism; R65.20 Severe sepsis without septic shock; K56.2 Volvulus; J18.0 Bronchopneumonia, unspecified organism; G92.8 Other toxic encephalopathy; K55.9 Vascular disorder of intestine, unspecified; E87.0 Hyperosmolality and hypernatremia; E87.2 Acidosis; E87.6 Hypokalemia; G30.9 Alzheimer's disease, unspecified; F02.80 Dementia in other diseases classified elsewhere, unspecified severity, without behavioral disturbance, psychotic disturbance, mood disturbance, and anxiety; D72.829 Elevated white blood cell count, unspecified; Z66 Do not resuscitate; Z20.822 Contact with and (suspected) exposure to COVID-19; Z79.890 Hormone replacement therapy; Z79.899 Other long term (current) drug therapy
CPT/HCPCS: 36415; 71046; 71250; 74177; 80053; 82248; 83605; 83690; 84484; 85025; 85610; 85730; 86850; 86900; 86901; 87040; 87635; 93005; 96361; 96365; 96366; 96367; 96375; 99219; 99285; 99291; J0696; J1170; J2060; J2270; J2405; Q9967